=== PATIENT | female | born 1960 | race Caucasian/White ===

== ENCOUNTER → 2020-05-13 13:04 | Outpatient (BNVA) | payer OTHER, SELFPAY | PROVIDERS: PCP Internal Medicine; Visit Provider Family Medicine Adult Medicine | DX: M47.816 Spondylosis without myelopathy or radiculopathy, lumbar region (principal); F32.9 Major depressive disorder, single episode, unspecified | CPT/HCPCS: 99212 ==

== ENCOUNTER → 2020-08-12 13:39 | Outpatient (BNVA) | payer OTHER, SELFPAY | PROVIDERS: PCP Internal Medicine; Referring Provider Internal Medicine; Visit Provider Family Medicine Adult Medicine | DX: M47.816 Spondylosis without myelopathy or radiculopathy, lumbar region (principal); F32.9 Major depressive disorder, single episode, unspecified; Z79.899 Other long term (current) drug therapy | CPT/HCPCS: 99212 ==

== ENCOUNTER → 2020-10-12 08:06 | Outpatient (BNVA) | payer OTHER, SELFPAY | PROVIDERS: PCP Internal Medicine; Visit Provider Family Medicine Adult Medicine | DX: M47.816 Spondylosis without myelopathy or radiculopathy, lumbar region (principal); F32.9 Major depressive disorder, single episode, unspecified | CPT/HCPCS: 99212 ==

== ENCOUNTER → 2020-12-21 08:07 | Outpatient (BNVA) | payer OTHER, SELFPAY | PROVIDERS: PCP Internal Medicine; Visit Provider Family Medicine Adult Medicine | DX: M47.816 Spondylosis without myelopathy or radiculopathy, lumbar region (principal); F32.9 Major depressive disorder, single episode, unspecified; Z79.899 Other long term (current) drug therapy | CPT/HCPCS: 99212 ==

== ENCOUNTER 2021-01-11 06:33 | Outpatient (REF) | payer OTHER, SELFPAY ==
[2021-01-11 11:37] LABS: Hematocrit 43.2 % (37-47); Hemoglobin 14.2 g/dl (12.0-16.0); Mean Corpuscular HGB Conc 32.9 g/dl (31.0-35.0); Mean Corpuscular Hemoglobin 30.1 pg (27.0-33.0); Mean Corpuscular Volume 91.5 fL (80-98); Mean Platelet Volume 10.2 fL (9.4-12.3); Platelet Count 307 X10*3/uL (160-400); Red Blood Count 4.72 X10*6/uL (4.20-5.50); Red Cell Distribution Width 11.9 % (11.0-16.0); White Blood Count 6.2 X10*3/uL (4.8-10.8)
[2021-01-11 12:11] LABS: Alanine Aminotransferase 15 U/L (0-31); Albumin Level 4.4 g/dL (3.5-5.0); Alkaline Phosphatase 55 U/L (39-117); Anion Gap 11 (12-20); Aspartate Amino Transferase 17 U/L (5-31); Bilirubin Direct 0.3 mg/dL (0.0-0.5); Bilirubin Total 0.5 mg/dL (0.0-1.0); Blood Urea Nitrogen 15 mg/dL (9-16); Calcium 9.6 mg/dL (8.4-10.2); Carbon Dioxide 30 mmol/L (22-29); Chloride 105 mmol/L (96-108); Cholesterol 223 mg/dL; Estimated Glomerular Filt Rate 60; Glucose Random 94 mg/dL (60-115); HDL Cholesterol 86 mg/dL; LDL Cholesterol Calculated 128 mg/dl; Potassium 4.3 mmol/L (3.3-5.1); Sodium 142 mmol/L (135-145); Thyroid Stimulating Hormone 3.85 uIU/mL (0.32-4.0); Total Protein 6.8 g/dL (6.5-8.0); Triglycerides 47 mg/dL
[2021-01-15 14:51] LABS: Vitamin D 25-OH, D2 <4 ng/mL; Vitamin D 25-OH, D3 32 ng/mL; Vitamin D 25-OH, Total 32 ng/mL (30-100)
== END 2021-01-11 06:34 | disposition home or self-care (01) ==
LOC: HO.HMGCLDS 06:33
PROVIDERS: PCP Internal Medicine; Visit Provider Internal Medicine
DX: E78.00 Pure hypercholesterolemia, unspecified (principal)
CPT/HCPCS: 36415; 80048; 80061; 80076; 82306; 84443; 85027

== ENCOUNTER 2022-01-24 09:42 | Outpatient (REF) | payer OTHER, SELFPAY ==
[2022-01-24 11:27] LABS: Hemoglobin 14.4 g/dl (12.0-16.0); Mean Corpuscular HGB Conc 32.7 g/dl (31.0-35.0); Mean Corpuscular Hemoglobin 29.3 pg (27.0-33.0); Mean Corpuscular Volume 89.4 fL (80.0-98.0); Mean Platelet Volume 9.8 fL (9.4-12.3); Platelet Count 329 X10*3/uL (160-400); Red Blood Count 4.92 X10*6/uL (4.20-5.50); Red Cell Distribution Width 11.9 % (11.0-16.0); White Blood Count 7.3 X10*3/uL (4.8-10.8)
[2022-01-24 12:00] LABS: Appearance Urine Clear; Color Urine Dark Yellow; Glucose Urine UA Negative (Negative); Leukocyte Esterase Urine Small (1+) (Negative); Nitrite Urine Positive (Negative); PH 5.5 (5.0-8.0); Urine Blood Negative (Negative); Urine Ketones Trace mg/dL (Negative); Urine Protein Negative (Neg-Trace)
[2022-01-24 12:07] LABS: Bacteria Urine 4+ (None Seen); Hyaline Casts Urine 0-2 /LPF (0-2); RBC Urine 0-2 /HPF (0-2); UACC Culture Trigger YES
[2022-01-24 12:14] LABS: Alanine Aminotransferase 13 U/L (0-31); Albumin Level 4.4 g/dL (3.5-5.0); Alkaline Phosphatase 63 U/L (39-117); Anion Gap 15 (12-20); Aspartate Amino Transferase 16 U/L (5-31); Bilirubin Direct 0.2 mg/dL (0.0-0.5); Bilirubin Total 0.6 mg/dL (0.0-1.0); Blood Urea Nitrogen 14 mg/dL (9-16); Calcium 9.4 mg/dL (8.4-10.2); Carbon Dioxide 29 mmol/L (22-29); Chloride 98 mmol/L (96-108); Cholesterol 239 mg/dL; Estimated Glomerular Filt Rate > 60; Glucose Random 101 mg/dL (60-115); HDL Cholesterol 66 mg/dL; LDL Cholesterol Calculated 154 mg/dl; Sodium 138 mmol/L (135-145); Total Protein 7.2 g/dL (6.5-8.0); Triglycerides 99 mg/dL
[2022-01-24 12:16] LABS: Thyroid Stimulating Hormone 2.79 uIU/mL (0.32-4.0)
== END 2022-01-24 09:43 | disposition home or self-care (01) ==
LOC: HO.HMGCLDS 09:42
PROVIDERS: PCP Internal Medicine; Visit Provider Internal Medicine
DX: M47.9 Spondylosis, unspecified (principal); F33.9 Major depressive disorder, recurrent, unspecified; E78.00 Pure hypercholesterolemia, unspecified
CPT/HCPCS: 36415; 80048; 80061; 80076; 81001; 81003; 84443; 85027; 87086; 87088; 87186

== ENCOUNTER 2022-07-13 11:00 | Outpatient (RCR) | payer OTHER, SELFPAY | END 2022-07-20 13:14 | disposition home or self-care (01) | LOC: HO.PTCHIC 11:00 | PROVIDERS: PCP Internal Medicine; Visit Provider Podiatrist | DX: M76.812 Anterior tibial syndrome, left leg (principal) | CPT/HCPCS: 97035; 97110; 97112; 97140; 97161; 97164 ==

== ENCOUNTER 2023-02-12 08:02 | Outpatient (REF) | payer MEDICARE, OTHER, SELFPAY ==
[2023-02-12 12:10] LABS: Appearance Urine Clear; Color Urine Yellow; Glucose Urine UA Negative (Negative); Leukocyte Esterase Urine Negative (Negative); Nitrite Urine Negative (Negative); Urine Blood Negative (Negative); Urine Ketones Negative (Negative); Urine Protein Negative (Neg-Trace)
[2023-02-12 12:11] LABS: Alanine Aminotransferase 18 U/L (0-31); Alkaline Phosphatase 57 U/L (39-117); Anion Gap 10 (12-20); Aspartate Amino Transferase 21 U/L (5-31); Bilirubin Direct 0.2 mg/dL (0.0-0.5); Bilirubin Total 0.4 mg/dL (0.0-1.0); Blood Urea Nitrogen 19 mg/dL (9-16); Calcium 9.4 mg/dL (8.4-10.2); Carbon Dioxide 29 mmol/L (22-29); Chloride 107 mmol/L (96-108); Cholesterol 183 mg/dL (<200); Estimated Glomerular Filt Rate > 60; Glucose Random 87 mg/dL (60-115); HDL Cholesterol 81 mg/dL (>40); LDL Cholesterol Calculated 92 mg/dL (<100); Potassium 4.7 mmol/L (3.3-5.1); Sodium 141 mmol/L (135-145); Total Protein 6.3 g/dL (6.5-8.0); Triglycerides 54 mg/dL (<150)
[2023-02-12 12:28] LABS: Thyroid Stimulating Hormone 3.53 uIU/mL (0.32-4.0)
[2023-02-12 12:52] LABS: Erythrocyte Sedimentation Rate 2 MM/HR (0-20)
[2023-02-12 12:57] LABS: Hematocrit 39.2 % (37.0-47.0); Hemoglobin 12.6 g/dl (12.0-16.0); Mean Corpuscular HGB Conc 32.1 g/dl (31.0-35.0); Mean Corpuscular Hemoglobin 29.7 pg (27.0-33.0); Mean Corpuscular Volume 92.5 fL (80.0-98.0); Mean Platelet Volume 9.8 fL (9.4-12.3); Platelet Count 236 X10*3/uL (160-400); Red Blood Count 4.24 X10*6/uL (4.20-5.50); Red Cell Distribution Width 13.7 % (11.0-16.0); White Blood Count 7.6 X10*3/uL (4.8-10.8)
== END 2023-02-12 08:03 | disposition home or self-care (01) ==
LOC: HO.HMGCLDS 08:02
PROVIDERS: PCP Internal Medicine; Visit Provider Internal Medicine
DX: F33.9 Major depressive disorder, recurrent, unspecified (principal); E78.00 Pure hypercholesterolemia, unspecified
CPT/HCPCS: 36415; 80048; 80061; 80076; 81003; 84443; 85027; 85652

== ENCOUNTER 2023-02-15 15:16 | Outpatient (AMB) | payer MEDICARE, OTHER, SELFPAY ==
--- NOTE | 2023-02-15 15:19 | A.OFFVIS_ITS ---
Intake Vital Signs 02/15/23 15:24 Height 5 ft 1.5 in Weight 142 lb BMI 26.4 BP 130/80 Blood Pressure Location Lt brachial Position Sitting Pulse 77 Pulse Source Pulse Oximeter Pulse Oximetry (%) 100 Oxygen Delivery Method Room Air Intake Visit Reasons: AWV Intake Note: Patient is here for an Annual Wellness Visit. Lamp Stack Developer Required: No Legal Records Clerk: Legal Records Clerk offered & declined Accompanied by: Self / Same As Patient Allergies sulfa Allergy (Unknown, Uncoded 02/18/23 07:53) unknown HPI AWV HPI Details 62-year-old female presents to the [facility] for an annual wellness visit [facility] Medical History Osteoarthritis of spine Major depression, recurrent Hypercholesterolemia Depression Arthritis, lumbar spine Surgical History History of eyelid surgery History of colonoscopy Family History Father No problems noted. Mother No problems noted. Social History Housing: House Alcohol intake: current Alcohol intake frequency: a few times a month Patient Tobacco Use Status: Never used Tobacco e-Cigarette/Vaping Use: Never Used Second Hand Smoke Exposure: Yes service: No Current occupational status: employed Cognitive needs: No Hearing needs: No Vision needs: Yes (Contacts) Questionnaire Medicare Wellness Checkup What [age] your age?: 65-69 (62) What gender do you identify with?: female During the past 4 weeks, how much have you been bothered by emotional problems such as feeling anxious, depressed, irritable, sad or downhearted, and blue?: not at all During the past 4 weeks, has your physical & emotional health limited your social activities with family, friends, neighbors, or groups?: not at all During the past 4 weeks, how much bodily pain have you generally had?: no pain During the past 4 weeks, was someone available to help you if you needed & wanted help?: yes, as much as I wanted During the past 4 weeks, what was the hardest physical activity you could do for at least 2 minutes?: heavy Can you get to places out of walking distance without help? (For eg., can you travel alone on buses, taxis or drive your car?): Yes Can you go shopping for groceries or clothes without someone's help?: Yes Can you prepare your own meals?: Yes Can you do your housework without help?: Yes Because of any health problems, do you need the help of another person with your personal care needs such as eating, bathing, dressing or getting around the house?: No Can you handle your own money without help?: Yes During the past 4 weeks, how would you rate your health in general?: very good During the past 4 weeks how have things been going for you?: pretty well Are you having difficulties driving your car?: no Do you always fasten your seat belt when you are in a car?: yes, usually During past 4 weeks, have you been bothered by the following: never: Falling or dizzy when standing up, Sexual problems?, Trouble eating well?, Teeth or denture problems?, Problems using the telephone? and Tiredness or fatigue? Have you fallen 2 or more times in the past year?: No Are you afraid of falling?: No Are you a smoker?: no During the past 4 weeks, how many drinks of wine, beer, or other alcoholic beverages did you have?: 6-9 drinks per week Do you exercise for about 20 minutes 3 or more times a week?: yes, all the time Have you been given information to help with the following?: yes: Keeping track of your medications? and no: Hazards in your house that might hurt you? How often do you have trouble taking medicines the way you have been told to take them?: I always take medicine as prescribed How confident are you that you can control & manage most of your health problems?: very confident What is your race?: White Mini Mental State Exam (MMSE) Orientation What is the (year) (season) (date) (day) (month)?: year, season, date and day Where are we (state) (county) (town or city) (hospital) (floor)?: state, county and town or city Registration Name of 3 unrelated objects clearly and slowly, then ask patient to repeat all 3 of them. (1st repeat determines score. Make sure they can repeat all three): object 1, object 2 and object 3 Attention & Calculation (CHOOSE ONE) Ask pt to begin with 100 & count backward by 7. Stop after 5 repeats. If pt cannot ask them to spell the word WORLD backward.: 93, 86 and 79 Score Score: 13 Activity of Daily Living Bathing - sponge bath, tub bath or shower: receives no assistance (gets in/out by self, if usual bathing means Dressing - getting clothes from closets & drawers, including inner/outer garments & fasteners.: gets clothes & gets completely dressed without help Toileting - going to the 'toilet room' for urine/bowel elimination & cleaning self/arranging clothes: goes to toilet room, cleans self, arranges clothes without help Transfer: moves in & out of bed and chair without help (may use support object) Continence: controls urination/bowel movements completely by self Feeding: feeds self without help Total Score: 0 Information obtained from: patient Using telephone: independent Traveling: independent Shopping: independent Preparing meals: independent Housework: independent Taking medicine: independent Managing money: independent PHQ-9 Over the last 2 weeks, how often have you been bothered by any of the following problems? 1. Little interest or pleasure in doing things: not at all 2. Feeling down, depressed, or hopeless: not at all 3. Trouble falling or staying asleep, or sleeping too much: not at all 4. Feeling tired or having little energy: not at all 5. Poor appetite or overeating: not at all 6. Feeling bad about yourself - or that you are a failure or have let yourself or your family down: not at all 7. Trouble concentrating on things, such as reading the newspaper or watching television: not at all 8. Moving or speaking so slowly that other people could have noticed. Or the opposite - being so fidgety or restless that you have been moving around a lot more than usual: not at all 9. Thoughts that you would be better off or of hurting yourself in some way: not at all Total score: 0 Depression Screening Interpretation: Negative Source: Developed by Drs. Reed Suresh, Kym Anaya, Christopher Drake and colleagues, with an educational alexis from [employer]. Thrive Questionnaire Date Thrive assessed: 02/15/23 I am a: Patient What is your living situation today?: I have a steady place to live Within the past 12 months, did the food you bought not last and you didn't have the money to get more?: Never true Within the past 12 months, did you worry whether your food would run out before you got money to buy more?: Never true Do you have trouble paying for medicines?: No Do you have trouble getting transportation to medical appointments?: No Do you have trouble paying your heating and electricity bill?: No Do you have trouble taking care of your child, family member or friend?: No Do you have trouble with day-to-day activities such as bathing, preparing meals, shopping, managing finances, etc.?: No Are you currently unemployed and looking for a job?: No Are you interested in more education?: No Currently or been in a relationship where the following occur: no concerns reported ANSHU-7 AMB Questionnaire ANSHU-7 Date ANSHU - 7 assessed: 02/15/23 Feeling nervous, anxious, or on edge: 0 = Not at all Not being able to stop or control worryin = Not at all Worrying too much about different things: 0 = Not at all Trouble relaxin = Not at all Being so restless that it is hard to sit still: 0 = Not at all Becoming easily annoyed or irritable: 0 = Not at all Feeling afraid as if something awful might happen: 0 = Not at all Total ANSHU-7 score (0-4 normal; 5-9 mild; 10-14 moderate; 15-21 severe): 0 Source: Developed by Drs. Reed Suresh, Kym Anaya, Christopher Drake and colleagues, with an educational alexis from [employer]. AUDIT C Alcohol Use Questionnaire (AUDIT-C) 1. How often do you have a drink containing alcohol?: Monthly or less 2. How many drinks containing alcohol do you have on a typical day when you are drinking?: 1 or 2 Total Score: 1 Physical Exam Vital Signs: Last Vital Signs Pulse 77 02/15/23 15:24 BP 130/80 02/15/23 15:24 Pulse Ox 100 02/15/23 15:24 Oxygen Delivery Method Room Air 02/15/23 15:24 BMI result Body Mass Index 26.4 Balance: Normal Romberg: Neg Tandem Walk: Able to Walk and Turn: Able to Rise from sit to stand: Able to Hearing Whisper test: Pass Assessment & Plan Assessment & Plan (1) Encounter for annual physical exam: Code(s): Z00.00 - Encounter for general adult medical examination without abnormal findings (2) Osteoarthritis of spine: Code(s): M47.9 - Spondylosis, unspecified Qualifiers: Spinal region: lumbar Spinal osteoarthritis complication: without myelopathy or radiculopathy Qualified Code(s): M47.816 - Spondylosis without myelopathy or radiculopathy, lumbar region Plan: Condition is stable (3) Major depression, recurrent: Code(s): F33.9 - Major depressive disorder, recurrent, unspecified Qualifiers: Active/Remission status: in full remission Qualified Code(s): F33.42 - Major depressive disorder, recurrent, in full remission Plan: Continue Wellbutrin medication at same dosage (4) Hypercholesterolemia: Code(s): E78.00 - Pure hypercholesterolemia, unspecified Plan: Blood work shows significant improvement and total cholesterol. Patient was advised to continue exercising. (5) Arthritis, lumbar spine: Code(s): M47.816 - Spondylosis without myelopathy or radiculopathy, lumbar region Medications: Refilled bupropion HCl 300 mg PO QAM 90 tabs 2RF F32.9 - Major depressive disorder, single episode, unspecified Quality Reporting (2019) Depression/Bipolar (159/160/161/177) PHQ-9: Total score: 0 Coding Level of Care Code Medicare First (G0438) Diagnoses Encounter for annual physical exam Z00.00 Spondylosis of lumbar region without myelopathy or radiculopathy M47.816 Spinal region: lumbar Spinal osteoarthritis complication: without myelopathy or radiculopathy Recurrent major depressive disorder, in full remission F33.42 Active/Remission status: in full remission Hypercholesterolemia E78.00 Arthritis, lumbar spine M47.816 CPT Codes Advance Care Planning - Time spent: 1-15 minutes, not on file ([id number]) Advance Care Planning Advance Care Planning discussion: Exists, not on file Date of discussion: 02/15/23 Who was present: Patient Forms completed: Health Care Proxy and MOLST Time spent: 1-15 minutes, not on file
[2023-02-15 15:24] VITALS: BP 130/80; PULSE 77; O2SAT 100; BMI 26.4
== END 2023-02-15 16:00 | disposition home or self-care (01) ==
PROVIDERS: Visit Provider Internal Medicine
DX: Z00.00 Encounter for general adult medical examination without abnormal findings (principal); M47.816 Spondylosis without myelopathy or radiculopathy, lumbar region; F33.42 Major depressive disorder, recurrent, in full remission; E78.00 Pure hypercholesterolemia, unspecified
CPT/HCPCS: 1124F; 99214; G0438

== ENCOUNTER 2023-07-19 12:09 | Outpatient (AMB) | payer MEDICARE, OTHER, SELFPAY ==
[2023-07-19 12:14] VITALS: BP 136/80; PULSE 75; O2SAT 98; BMI 26.4
--- NOTE | 2023-07-19 12:14 | MHC.PC.OV ---
Vital Signs 07/19/23 12:14 Height 5 ft 1.5 in Weight 142 lb BMI 26.4 BP 136/80 Blood Pressure Location Lt brachial Position Sitting Pulse 75 Pulse Source Pulse Oximeter Pulse Oximetry (%) 98 Oxygen Delivery Method Room Air Intake Visit Reasons: Urgent Care F/U-Torn Calf Muscle on Right Leg Senior Infrastructure Architect Required: No Accompanied by: Self / Same As Patient Allergies sulfa Allergy (Unknown, Uncoded 07/19/23 12:36) unknown Medication List - Last Reconciled 07/19/23 by Shay Talamantes MD bupropion HCl 300 mg PO QAM fluticasone propionate 50 mcg/actuation 1 spray intranasal BID ibuprofen 800 mg PO Q8H PRN 90 days tizanidine 4 mg PO Q8H Tobacco use date assessed: 07/19/23 Fall risk assessment: 1 Fall in past year Last assessed Fall Risk: 07/19/23 Dental Screening Dental Screen Date: 07/19/23 Did you have a dental visit in the last 12 months?: Yes Did you have a dental problem in the last 6 months where you did not have access to dental care?: No Was dental information given to patient?: Patient has dentist HPI Urgent Care F/U-Torn Calf Muscle on Right Leg HPI Details 63-year-old female presents to the office to discuss her medical condition. In April patient started having pain behind her right knee. Soon she was having difficulty squatting. At 1 point, while she was jogging she experienced sharp shooting pain in the right knee. Went to the urgent care at the local orthopedic office and was diagnosed with meniscal tear. She wore a boot for 6 weeks with no relief. Finally when she went back an MRI was done which showed a Pickett cyst with meniscal tear. She saw an orthopedic surgeon who injected a steroid. Now her symptoms of pain have resolved. Patient had questions on returning back to physical exercise. She would also like to get a refill on Zovirax, bupropion and ibuprofen. [facility] Medical History (Updated 07/19/23 @ 12:41 by Shay Talamantes MD) Synovial cyst of popliteal space [Pickett], right knee Osteoarthritis of spine Major depression, recurrent Hypercholesterolemia Depression Arthritis, lumbar spine Surgical History History of eyelid surgery History of colonoscopy Family History Father No problems noted. Mother No problems noted. Social History Housing: House Alcohol intake: current Alcohol intake frequency: a few times a month Patient Tobacco Use Status: Never used Tobacco e-Cigarette/Vaping Use: Never Used Second Hand Smoke Exposure: Yes service: No Current occupational status: employed Current occupational exposures/hazards: No Cognitive needs: No Hearing needs: No Vision needs: Yes (Contacts) Questionnaire PHQ-9 Over the last 2 weeks, how often have you been bothered by any of the following problems? 1. Little interest or pleasure in doing things: not at all 2. Feeling down, depressed, or hopeless: not at all 3. Trouble falling or staying asleep, or sleeping too much: not at all 4. Feeling tired or having little energy: not at all 5. Poor appetite or overeating: not at all 6. Feeling bad about yourself - or that you are a failure or have let yourself or your family down: not at all 7. Trouble concentrating on things, such as reading the newspaper or watching television: not at all 8. Moving or speaking so slowly that other people could have noticed. Or the opposite - being so fidgety or restless that you have been moving around a lot more than usual: not at all 9. Thoughts that you would be better off or of hurting yourself in some way: not at all Total score: 0 Depression Screening Interpretation: Negative Depression Screening Done: Yes Source: Developed by Drs. Reed Suresh, Kym Anaya, Christopher Drake and colleagues, with an educational alexis from [employer] Thrive Questionnaire Date Thrive assessed: 07/19/23 I am a: Patient What is your living situation today?: I have a steady place to live Within the past 12 months, did the food you bought not last and you didn't have the money to get more?: Never true Within the past 12 months, did you worry whether your food would run out before you got money to buy more?: Never true Do you have trouble paying for medicines?: No Do you have trouble getting transportation to medical appointments?: No Do you have trouble paying your heating and electricity bill?: No Do you have trouble taking care of your child, family member or friend?: No Do you have trouble with day-to-day activities such as bathing, preparing meals, shopping, managing finances, etc.?: No Are you currently unemployed and looking for a job?: No Are you interested in more education?: No Please select the resources that you would like help with: None Currently or been in a relationship where the following occur: no concerns reported THRIVE Score: 0 AUDIT C Alcohol Use Questionnaire (AUDIT-C) 1. How often do you have a drink containing alcohol?: Monthly or less 2. How many drinks containing alcohol do you have on a typical day when you are drinking?: 1 or 2 3. How often do you have six or more drinks on one occasion?: Never Total Score: 1 ANSHU-7 AMB Questionnaire ANSHU-7 Date ANSHU - 7 assessed: 07/19/23 Feeling nervous, anxious, or on edge: 0 = Not at all Not being able to stop or control worryin = Not at all Worrying too much about different things: 0 = Not at all Trouble relaxin = Not at all Being so restless that it is hard to sit still: 0 = Not at all Becoming easily annoyed or irritable: 0 = Not at all Feeling afraid as if something awful might happen: 0 = Not at all Total ANSHU-7 score (0-4 normal; 5-9 mild; 10-14 moderate; 15-21 severe): 0 Source: Developed by Drs. Reed Suresh, Kym Anaya, Christopher Drake and colleagues, with an educational alexis from [employer]. Physical exam (Primary Care) Vital Signs: Last Vital Signs Pulse 75 07/19/23 12:14 BP 136/80 07/19/23 12:14 Pulse Ox 98 07/19/23 12:14 Oxygen Delivery Method Room Air 07/19/23 12:14 Care Plan Goal for BP management: Blood pressure is in range. BMI result Body Mass Index 26.4 Tobacco/Smoking Status: Tobacco use Status Tobacco use date assessed 07/19/23 07/19/23 12:19 Patient Tobacco Use Status Never used Tobacco 07/19/23 12:19 e-Cigarette/Vaping Use Never Used 07/19/23 12:19 PHQ-9: PHQ-9 Score PHQ-9: Total score 0 07/19/23 12:19 Depression Screening Interpretation: Negative Thrive Assessment: Date of Thrive Assessment Date Thrive assessed 07/19/23 07/19/23 12:22 Currently or been in a relationship where the following occur: no concerns reported Extrem Other: Right knee: No joint line tenderness. Popliteal fossa is normal. Full flexion and extension. Assessment and Plan Assessment & Plan (1) Major depression, recurrent: Code(s): F33.9 - Major depressive disorder, recurrent, unspecified Qualifiers: Active/Remission status: in full remission Qualified Code(s): F33.42 - Major depressive disorder, recurrent, in full remission Plan: Bupropion has been refilled. Zovirax has been refilled. Condition is stable and continue current medications. (2) Synovial cyst of popliteal space [Pickett], right knee: Code(s): M71.21 - Synovial cyst of popliteal space [Pickett], right knee Plan: Patient was advised that she could go back to exercising wearing support for the right knee. Coding Level of Care Code Est Pt Level 4 (31965) Diagnoses Recurrent major depressive disorder, in full remission F33.42 Active/Remission status: in full remission Synovial cyst of popliteal space [Pickett], right knee M71.21
== END 2023-07-19 12:42 | disposition home or self-care (01) ==
PROVIDERS: PCP Internal Medicine; Visit Provider Internal Medicine
DX: F33.42 Major depressive disorder, recurrent, in full remission (principal); M71.21 Synovial cyst of popliteal space [Baker], right knee
CPT/HCPCS: 99214

== ENCOUNTER 2024-02-13 07:53 | Outpatient (REF) | payer MEDICARE, OTHER, SELFPAY ==
[2024-02-13 10:01] LABS: Hematocrit 41.9 % (37.0-47.0); Hemoglobin 13.9 g/dl (12.0-16.0); Mean Corpuscular HGB Conc 33.2 g/dl (31.0-35.0); Mean Corpuscular Hemoglobin 30.5 pg (27.0-33.0); Mean Corpuscular Volume 91.9 fL (80.0-98.0); Mean Platelet Volume 9.7 fL (9.4-12.3); Platelet Count 251 X10*3/uL (160-400); Red Blood Count 4.56 X10*6/uL (4.20-5.50); Red Cell Distribution Width 12.7 % (11.0-16.0); White Blood Count 6.8 X10*3/uL (4.8-10.8)
[2024-02-13 10:25] LABS: Alanine Aminotransferase 15 U/L (0-31); Albumin Level 4.2 g/dL (3.5-5.0); Alkaline Phosphatase 58 U/L (39-117); Anion Gap 13 (12-20); Aspartate Amino Transferase 17 U/L (5-31); Bilirubin Direct 0.3 mg/dL (0.0-0.5); Bilirubin Total 0.9 mg/dL (0.0-1.0); Blood Urea Nitrogen 18 mg/dL (9-16); Calcium 9.5 mg/dL (8.4-10.2); Carbon Dioxide 30 mmol/L (22-29); Chloride 102 mmol/L (96-108); Cholesterol 215 mg/dL (<200); Estimated Glomerular Filt Rate > 60; Glucose Random 97 mg/dL (60-115); HDL Cholesterol 82 mg/dL (>40); LDL Cholesterol Calculated 123 mg/dL (<100); Potassium 3.7 mmol/L (3.3-5.1); Sodium 141 mmol/L (135-145); Total Protein 6.6 g/dL (6.5-8.0); Triglycerides 51 mg/dL (<150)
== END 2024-02-13 07:54 | disposition home or self-care (01) ==
LOC: HO.HMGCLDS 07:53
PROVIDERS: PCP Internal Medicine; Visit Provider Internal Medicine
DX: E78.00 Pure hypercholesterolemia, unspecified (principal)
CPT/HCPCS: 36415; 80048; 80061; 80076; 84443; 85027

== ENCOUNTER 2024-02-21 14:26 | Outpatient (AMB) | payer MEDICARE, OTHER, SELFPAY ==
--- NOTE | 2024-02-21 14:29 | AM.OFFVISMDC ---
Intake Vital Signs 02/21/24 14:32 Height 5 ft 1.5 in Weight 136 lb 6 oz BMI 25.3 BP 120/70 Blood Pressure Location Lt brachial Position Sitting Pulse 90 Pulse Source Pulse Oximeter Pulse Oximetry (%) 96 Oxygen Delivery Method Room Air Intake Visit Reasons: [facility] G0439 Intake Note: Patient is here for an Annual Wellness Visit. It Solutions Architect Required: No Transportation Planning Engineer: Transportation Planning Engineer offered & declined Accompanied by: Self / Same As Patient Allergies sulfa Allergy (Unknown, Uncoded 02/22/24 10:29) unknown Medication List - Last Reconciled 02/22/24 by Shay Talamantes MD acyclovir 5% (Zovirax) 1 appl topical 6XD 7 days bupropion HCl XL 300 mg PO QAM fluticasone propionate 50 mcg/actuation 1 spray intranasal BID ibuprofen 800 mg PO DAILY PRN 90 days tizanidine 4 mg PO Q8H HPI SWV G0439 HPI Details 63-year-old female presents to the office requesting a subsequent wellness visit. [facility] Medical History Synovial cyst of popliteal space [Pickett], right knee Osteoarthritis of spine Major depression, recurrent Hypercholesterolemia Depression Arthritis, lumbar spine Surgical History History of eyelid surgery History of colonoscopy (~02/24/19) Family History Father No problems noted. Mother No problems noted. Social History Housing: House Alcohol intake: current Alcohol intake frequency: a few times a month Patient Tobacco Use Status: Never used Tobacco e-Cigarette/Vaping Use: Never Used Second Hand Smoke Exposure: Yes service: No Current occupational status: employed Current occupational exposures/hazards: No Cognitive needs: No Hearing needs: No Vision needs: Yes (Contacts) Questionnaire Medicare Wellness Checkup What [age] 65-67 What gender do you identify with?: female During the past 4 weeks, how much have you been bothered by emotional problems such as feeling anxious, depressed, irritable, sad or downhearted, and blue?: not at all During the past 4 weeks, has your physical & emotional health limited your social activities with family, friends, neighbors, or groups?: not at all During the past 4 weeks, how much bodily pain have you generally had?: no pain During the past 4 weeks, was someone available to help you if you needed & wanted help?: yes, as much as I wanted During the past 4 weeks, what was the hardest physical activity you could do for at least 2 minutes?: very heavy Can you get to places out of walking distance without help? (For eg., can you travel alone on buses, taxis or drive your car?): Yes Can you go shopping for groceries or clothes without someone's help?: Yes Can you prepare your own meals?: Yes Can you do your housework without help?: Yes Because of any health problems, do you need the help of another person with your personal care needs such as eating, bathing, dressing or getting around the house?: No Can you handle your own money without help?: Yes During the past 4 weeks, how would you rate your health in general?: very good During the past 4 weeks how have things been going for you?: very well; could hardly better Are you having difficulties driving your car?: no Do you always fasten your seat belt when you are in a car?: yes, usually During past 4 weeks, have you been bothered by the following: never: Falling or dizzy when standing up, Sexual problems?, Trouble eating well?, Teeth or denture problems?, Problems using the telephone? and Tiredness or fatigue? Have you fallen 2 or more times in the past year?: No Are you afraid of falling?: Yes Are you a smoker?: no During the past 4 weeks, how many drinks of wine, beer, or other alcoholic beverages did you have?: 1 drink or less per week Do you exercise for about 20 minutes 3 or more times a week?: yes, all the time Have you been given information to help with the following?: yes: Keeping track of your medications? and no: Hazards in your house that might hurt you? How often do you have trouble taking medicines the way you have been told to take them?: I always take medicine as prescribed How confident are you that you can control & manage most of your health problems?: very confident What is your race?: White Mini Mental State Exam (MMSE) Orientation What is the (year) (season) (date) (day) (month)?: year, season, date and day Where are we (state) (county) (town or city) (hospital) (floor)?: state, county and town or city Attention & Calculation (CHOOSE ONE) Ask pt to begin with 100 & count backward by 7. Stop after 5 repeats. If pt cannot ask them to spell the word WORLD backward.: 93, 86, 79, 72 and 65 Score Score: 12 Activity of Daily Living Bathing - sponge bath, tub bath or shower: receives no assistance (gets in/out by self, if usual bathing means Dressing - getting clothes from closets & drawers, including inner/outer garments & fasteners.: gets clothes & gets completely dressed without help Toileting - going to the 'toilet room' for urine/bowel elimination & cleaning self/arranging clothes: goes to toilet room, cleans self, arranges clothes without help Transfer: moves in & out of bed and chair without help (may use support object) Continence: controls urination/bowel movements completely by self Feeding: feeds self without help Total Score: 0 Information obtained from: patient Using telephone: independent Traveling: independent Shopping: independent Preparing meals: independent Housework: independent Taking medicine: independent Managing money: independent PHQ-9 Over the last 2 weeks, how often have you been bothered by any of the following problems? 1. Little interest or pleasure in doing things: not at all 2. Feeling down, depressed, or hopeless: not at all 3. Trouble falling or staying asleep, or sleeping too much: not at all 4. Feeling tired or having little energy: not at all 5. Poor appetite or overeating: not at all 6. Feeling bad about yourself - or that you are a failure or have let yourself or your family down: not at all 7. Trouble concentrating on things, such as reading the newspaper or watching television: not at all 8. Moving or speaking so slowly that other people could have noticed. Or the opposite - being so fidgety or restless that you have been moving around a lot more than usual: not at all 9. Thoughts that you would be better off or of hurting yourself in some way: not at all Total score: 0 Depression Screening Interpretation: Negative Depression Screening Done: Yes Source: Developed by Drs. Reed Suresh, Kym Anaya, Christopher Drake and colleagues, with an educational alexis from [employer]. Thrive Questionnaire Date Thrive assessed: 07/19/23 What is your living situation today?: I have a steady place to live Are you currently unemployed and looking for a job?: No THRIVE Score: 0 ANSHU-7 AMB Questionnaire ANSHU-7 Date ANSHU - 7 assessed: 07/19/23 Source: Developed by Drs. Reed Suresh, Kym Anaya, Christopher Drake and colleagues, with an educational alexis from [employer]. AUDIT C Alcohol Use Questionnaire (AUDIT-C) 2. How many drinks containing alcohol do you have on a typical day when you are drinking?: 1 or 2 3. How often do you have six or more drinks on one occasion?: Never Total Score: 0 Physical Exam Vital Signs: Last Vital Signs Pulse 90 02/21/24 14:32 BP 120/70 02/21/24 14:32 Pulse Ox 96 02/21/24 14:32 Oxygen Delivery Method Room Air 02/21/24 14:32 BMI result Body Mass Index 25.3 Balance: Negative Romberg: Negative Tandem Walk: Able to Walk and Turn: Able to Rise from sit to stand: Able to Hearing Whisper test: Pass Scheduled for screening and nooksack of care provided to patient. Assessment & Plan Assessment & Plan (1) Encounter for annual physical exam: Code(s): Z00.00 - Encounter for general adult medical examination without abnormal findings Plan: Up-to-date on all screening procedures. (2) Osteoarthritis of spine: Code(s): M47.9 - Spondylosis, unspecified Qualifiers: Spinal region: lumbar Spinal osteoarthritis complication: without myelopathy or radiculopathy Qualified Code(s): M47.816 - Spondylosis without myelopathy or radiculopathy, lumbar region Plan: Condition is stable. (3) Major depression, recurrent: Code(s): F33.9 - Major depressive disorder, recurrent, unspecified Qualifiers: Active/Remission status: in full remission Qualified Code(s): F33.42 - Major depressive disorder, recurrent, in full remission Plan: Condition is stable. (4) Hypercholesterolemia: Code(s): E78.00 - Pure hypercholesterolemia, unspecified Plan: Condition is stable. Medications: Refilled tizanidine 4 mg PO Q8H 90 tabs 0RF acyclovir 5% (Zovirax) 1 appl topical 6XD 5 grams 0RF 7 days Quality Reporting (2019) Depression/Bipolar (159/160/161/177) PHQ-9: Total score: 0 Coding Level of Care Code Medicare Subsequent (G0439) Diagnoses Encounter for annual physical exam Z00.00 Spondylosis of lumbar region without myelopathy or radiculopathy M47.816 Spinal region: lumbar Spinal osteoarthritis complication: without myelopathy or radiculopathy Recurrent major depressive disorder, in full remission F33.42 Active/Remission status: in full remission Hypercholesterolemia E78.00
[2024-02-21 14:32] VITALS: BP 120/70; PULSE 90; O2SAT 96; BMI 25.3
== END 2024-02-21 15:24 | disposition home or self-care (01) ==
PROVIDERS: PCP Internal Medicine; Visit Provider Internal Medicine
DX: Z00.00 Encounter for general adult medical examination without abnormal findings (principal); M47.816 Spondylosis without myelopathy or radiculopathy, lumbar region; F33.42 Major depressive disorder, recurrent, in full remission; E78.00 Pure hypercholesterolemia, unspecified

== ENCOUNTER → 2024-02-21 14:26 | Outpatient (BNVA) | payer MEDICARE, OTHER, SELFPAY | PROVIDERS: PCP Internal Medicine; Visit Provider Internal Medicine ==

== ENCOUNTER 2024-04-09 10:38 | Outpatient (AMB) | payer MEDICARE, OTHER, SELFPAY ==
[2024-04-09 10:52] VITALS: BP 138/90; PULSE 100; O2SAT 97; BMI 26.0
--- NOTE | 2024-04-09 10:52 | MHC.OFFWIV ---
Intake Vital Signs 04/09/24 10:52 Height 5 ft 1.5 in Weight 140 lb 2 oz BMI 26.0 BP 138/90 H Blood Pressure Location Lt brachial Position Sitting Pulse 100 Pulse Source Pulse Oximeter Pulse Oximetry (%) 97 Oxygen Delivery Method Room Air Intake Visit Reasons: EP ? UTI [phone] Patient Tobacco Use Status: Never used Tobacco Allergies sulfa Allergy (Unknown, Uncoded 04/09/24 11:10) unknown Do you need a note to return to daycare/school/sports/work: Yes HPI EP ? UTI [phone] HPI Details This note is constructed using voice recognition software. While every effort has been made to ensure accuracy, records assistant errors may have been included. The patient is a 64 year old female who presents to the clinic today with concern for UTI. She notes that for the past week she has been having urinary frequency, urgency, and slight burning with urination. She has increased her hydration to help improve the symptoms. She denies fever, chills, body aches, backaches, change in color of urine, though she has had decreased volume. She is sexually active, no new partners, and no vaginal discharge. [facility] Medical History Synovial cyst of popliteal space [Pickett], right knee Osteoarthritis of spine Major depression, recurrent Hypercholesterolemia Depression Arthritis, lumbar spine Surgical History History of eyelid surgery History of colonoscopy (~02/24/19) Family History Father No problems noted. Mother No problems noted. Social History Housing: House Alcohol intake: current Alcohol intake frequency: a few times a month Patient Tobacco Use Status: Never used Tobacco e-Cigarette/Vaping Use: Never Used Second Hand Smoke Exposure: Yes service: No Current occupational status: employed Current occupational exposures/hazards: No Cognitive needs: No Hearing needs: No Vision needs: Yes (Contacts) Review of Systems Const All systems reviewed & are unremarkable except as noted in HPI and below Physical Exam Vital Signs: Last Vital Signs Pulse 100 04/09/24 10:52 BP 138/90 H 04/09/24 10:52 Pulse Ox 97 04/09/24 10:52 Oxygen Delivery Method Room Air 04/09/24 10:52 BMI result Body Mass Index 26.0 Const General: cooperative, healthy appearing, comfortable, no acute distress and alert Orientation/consciousness: patient oriented x3 Limitations: no limitations Resp Effort & Inspection: normal respiratory effort and able to speak in complete sentences Other: Deferred General: Yes no CVA tenderness Back/Spine/Pelvis Back: no CVA tenderness Skin General skin exam: no rashes or lesions noted, elasticity normal and turgor normal Neuro General: patient oriented x3 Psych Appearance: grossly normal Mental Status: mental status grossly normal Speech and movement: Normal speech and movement present Affect: normal affect Assessment & Plan Assessment & Plan (1) Dysuria: Code(s): R30.0 - Dysuria Plan: We will treat based on symptoms, though in office urine appears likely negative for UTI. Discussed likelihood that she may not have an infection, in which case the antibiotic will not help any symptoms. I advised re-evaluation if symptoms persist or worsen. Advised ongoing increased hydration to help flush the system. Plan See above for full details and plan. Medications: New nitrofurantoin monohyd/m-cryst 100 mg must administer with a meal/food 100 mg PO BID 5 days 10 caps 0RF Coding Level of Care Code Est Pt Level 3 (34992) Diagnoses Dysuria R30.0
== END 2024-04-09 11:23 | disposition home or self-care (01) ==
PROVIDERS: PCP Internal Medicine; Visit Provider Registered Nurse
DX: R30.0 Dysuria (principal)

== ENCOUNTER → 2024-04-09 10:38 | Outpatient (BNVA) | payer MEDICARE, OTHER, SELFPAY | PROVIDERS: PCP Internal Medicine; Visit Provider Registered Nurse | DX: R30.0 Dysuria (principal) | CPT/HCPCS: 99212 ==

== ENCOUNTER 2024-08-06 07:29 | Day surgery (SDC) | payer MEDICARE, OTHER, SELFPAY ==
[2024-08-04 13:11] VITALS: BMI 24.7
--- NOTE | 2024-08-05 12:41 | P.CONAN_ITS ---
Documented by User: Nelly Lucia NP 08/05/24 12:42 HPI - Anesthesia Eval Consult details Narrative: 64yo F for Upper Endoscopy with Balloon Dilitation, Colonoscopy PMFSH Active Problems Active Problems: All Active Problems Encounter for annual physical exam (Acute) Left foot pain (Acute) Synovial cyst of popliteal space [Pickett], right knee (Acute) Osteoarthritis of spine (Acute) Major depression, recurrent (Acute) Hypercholesterolemia (Acute) Arthritis, lumbar spine (Acute) Past Medical History Medical History Anal condyloma Depression Back pain Synovial cyst of popliteal space [Ipckett], right knee Osteoarthritis of spine Major depression, recurrent Hypercholesterolemia Depression Arthritis, lumbar spine Family History Family History Father No problems noted. Mother No problems noted. Surgical History Surgical History History of eyelid surgery History of colonoscopy (~02/24/19) Social History Social History Housing: House Are you a primary progressive care unit registered nurse to a significant other at home: No Do you presently have visiting nurse or other home services: No Alcohol intake: current Alcohol intake frequency: holidays/special occasions only Patient Tobacco Use Status: Never used Tobacco e-Cigarette/Vaping Use: Never Used Second Hand Smoke Exposure: Yes Use of substances other than those prescribed or required for medical reasons: No Have you been hit, kicked, punched, or otherwise hurt by someone within the past year? If so, by whom?: No Are you DNR?: No Advance Directives: No Advance Directives Information Provided: Yes Recently lost weight without trying: No Nutrition Risks: No Nutritional Risk service: No Current occupational status: employed Current occupational exposures/hazards: No Cognitive needs: No Hearing needs: No Vision needs: Yes (Contacts) Meds Allergies Allergy/AdvReac Type Severity Reaction Status Date / Time latex Allergy Unknown Verified 08/06/24 08:09 sulfa Allergy Unknown unknown Uncoded 04/09/24 11:10 Home Medications ?Medication ?Instructions ?Recorded ?Confirmed ?Last Taken ?Type ferrous sulfate 325 mg (65 mg 325 mg PO NEEDED 08/04/24 08/06/24 07/23/24 History iron) tablet (iron) multivitamin 1 tab PO DAILY 08/04/24 08/06/24 Unknown History bupropion HCl 300 mg 24 hr tablet, mg PO DAILY 08/06/24 08/06/24 Unknown History extended release cetirizine 10 mg tablet (Zyrtec) mg 08/06/24 08/06/24 Unknown History Exam Height,Weight and Vital Signs: Height 5 ft 2 in Weight 61.235 kg Assessment and Plan Assessment Anesthesia Assessment: Chart Reviewed Documented by User: Maurice Corona MD 08/06/24 08:45 PMFSH Past Medical History Medical History Anal condyloma Depression Back pain Synovial cyst of popliteal space [Pickett], right knee Osteoarthritis of spine Major depression, recurrent Hypercholesterolemia Depression Arthritis, lumbar spine Family History Family History Father No problems noted. Mother No problems noted. Family history of problems with anesthesia: No Surgical History Surgical History History of eyelid surgery History of colonoscopy (~02/24/19) History of Problems with Anesthesia: No Social History Social History Housing: House Are you a primary progressive care unit registered nurse to a significant other at home: No Do you presently have visiting nurse or other home services: No Alcohol intake: current Alcohol intake frequency: holidays/special occasions only Patient Tobacco Use Status: Never used Tobacco e-Cigarette/Vaping Use: Never Used Second Hand Smoke Exposure: Yes Use of substances other than those prescribed or required for medical reasons: No Have you been hit, kicked, punched, or otherwise hurt by someone within the past year? If so, by whom?: No Are you DNR?: No Advance Directives: No Advance Directives Information Provided: Yes Recently lost weight without trying: No Nutrition Risks: No Nutritional Risk service: No Current occupational status: employed Current occupational exposures/hazards: No Cognitive needs: No Hearing needs: No Vision needs: Yes (Contacts) Meds Allergies Allergy/AdvReac Type Severity Reaction Status Date / Time latex Allergy Unknown Verified 08/06/24 08:09 sulfa Allergy Unknown unknown Uncoded 04/09/24 11:10 Home Medications ?Medication ?Instructions ?Recorded ?Confirmed ?Last Taken ?Type ferrous sulfate 325 mg (65 mg 325 mg PO NEEDED 08/04/24 08/06/24 07/23/24 History iron) tablet (iron) multivitamin 1 tab PO DAILY 08/04/24 08/06/24 Unknown History bupropion HCl 300 mg 24 hr tablet, mg PO DAILY 08/06/24 08/06/24 Unknown History extended release cetirizine 10 mg tablet (Zyrtec) mg 08/06/24 08/06/24 Unknown History Exam Airway Mallampati Class: I TM Dist: >3cm Neck ROM: Full Loose/Missing/Broken Teeth: No Heart: ok Lungs: ok Assessment and Plan Assessment Anesthesia Assessment: Anesthesia Plan Discussed Final Anesthetic Review Family History of Problems with Anesthesia: No History of Problems with Anesthesia: No NPO: Yes ASA Class: II Final Preanesthetic Review: No Changes in Pt Med Stat, Meds/Allgs Chart Reviewed, Consent Obtained/Reviewed and Anes Risks/Benef Reviewed Patient Risk: Low Procedure Risk: Intermediate Anesthetic Plan Anesthetic Plan: Agree w/ Assess. and Plan and TIVA Disposition: Standard PACU
[2024-08-06 08:12] VITALS: BP 142/89; PULSE 79; RESP 14; TEMP 36.9; O2SAT 99; BMI 24.6
[2024-08-06] MEDS: Lactated Ringers 1,000 ML 100 ML IVCONT (08:23)
[2024-08-06 09:43] VITALS: BP 103/60; PULSE 76; RESP 18; TEMP 37.1; O2SAT 97
--- NOTE | 2024-08-06 09:49 | P.BOP_ITS ---
Brief Operative Note Date of Service: 08/06/24 Pre-op diagnosis: Dysphagia, Screening Post-op diagnosis: other (Esophageal ring, gastritis, colon polyp) Procedure: EGD with bx, and Balloon dilation of EG Junction with an 18mm to 19mm to 20mm balloon, Colonoscopy to the cecum and TI with bx/removal of polyp Surgeon: Reed Trevino MD Anesthesia: MAC Was an Alpine Guide used for this Procedure?: No Estimated blood loss (mL): 2.0 Pathology: other (A. Gastric antrum B. Cecal polyp) Condition: stable Disposition: PACU
[2024-08-06 10:00] VITALS: BP 113/71; PULSE 72; RESP 18; TEMP 37; O2SAT 99
--- NOTE | 2024-08-06 10:11 | OP_ITS ---
DATE OF SERVICE: 08/06/2024 SURGEON: Reed Trevino MD INDICATIONS: The patient presents for evaluation of intermittent dysphagia, family history of colon cancer, personal history of tubular adenoma of the colon, and colorectal cancer screening. Full consent was obtained from her for both procedures, including risks of bleeding and perforation. PREOPERATIVE DIAGNOSIS: POSTOPERATIVE DIAGNOSIS: PROCEDURE PERFORMED: Esophagogastroduodenoscopy with balloon dilation of gastroesophageal junction, and biopsies, and colonoscopy to the cecum and terminal ileum with biopsy and removal of polyp. ESTIMATED BLOOD LOSS: COMPLICATIONS: ANESTHESIA: Medication use; monitored anesthesia care. ASSISTANTS: SPECIMENS: PREOPERATIVE DIAGNOSES: Dysphagia, family history of colon cancer, personal history of tubular adenoma of the colon, colorectal cancer screening. POSTOPERATIVE DIAGNOSES: Dysphagia, family history of colon cancer, personal history of tubular adenoma of the colon, colorectal cancer screening, hiatal hernia, nonobstructing esophageal ring, gastritis, colon polyp, diverticulosis, and internal hemorrhoids. DESCRIPTION OF PROCEDURE: The patient was placed in the left lateral decubitus position. The Olympus videogastroscope was passed in the posterior oropharynx and upper esophagus under direct vision. The scope was passed slowly into the distal esophagus. The gastroesophageal junction appeared at 34 cm. There was some edema and erythema consistent with reflux, but no evidence of any esophagitis nor Moore esophagus. Just above this was what appeared to be a nonobstructing esophageal ring that was not circumferential. The scope easily passed this into a small hiatal hernia. The scope was advanced to the pylorus and the duodenum was cannulated to the descending portion. The duodenum including the bulb appeared normal without mass or ulceration. The scope withdrawn back to the stomach. There was some minimal amounts of coffee-grounds material in the stomach. There was some underlying gastritis in the antrum and body of the stomach, but without erosions or ulceration. There was good peristalsis. Biopsies were obtained from the antrum. The scope was retroflexed visualizing the proximal stomach carefully which appeared normal, without any sign of mass or ulceration. The scope was straightened and withdrawn back to the esophagus. I did use a [employer] incremental balloon to dilate the distal esophagus and gastroesophageal junction from 18 mm to 19 mm to 20 mm at the recommended pressure for between 30 and 60 seconds each. There was a small amount of heme noted postdilation. The scope was then withdrawn through the remainder of the esophagus, which appeared normal. The scope was withdrawn from the patient. She was turned around for colonoscopy. The digital rectal exam revealed no sign of any condylomatous tissue or any other abnormalities. The Olympus videopediatric colonoscope was entered into the rectum and advanced easily to the cecum. Once in the cecum, I did identify normal-appearing cecal pouch with appendiceal orifice and a normal-appearing ileocecal valve. The entire cecum was well visualized and did appear normal other than approximately 3 or 4 mm polyp in the cecum, which was biopsied and completely removed with cold biopsy forceps. The terminal ileum was cannulated and appeared normal. The scope was withdrawn back in the colon. The scope was slowly withdrawn assessing all mucosal surfaces carefully. Preparation was excellent after the 2 day prep. I did not visualize any sign of other polyps, colitis, nor angiodysplasia. There was a mild amount of sigmoid diverticulosis. In the rectum, the scope was retroflexed visualizing internal hemorrhoids, but no other pathology. The rectal mucosa appeared normal. The scope was straightened and withdrawn from the patient. She tolerated the procedure well and was returned to the recovery area in stable condition. IMPRESSION: 1. Gastritis. 2. Hiatal hernia, gastroesophageal reflux. 3. Nonobstructing distal esophageal ring, status post balloon dilation. 4. Colon polyp. 5. Diverticulosis. 6. Internal hemorrhoids. PLAN: The results of biopsy will be checked. I would recommend a repeat colonoscopy in 5 years for further screening and surveillance. Given the upper endoscopy findings and her history. I have instructed her to begin omeprazole 20 mg daily, either [id number] or prescription if her insurance will cover that. I did advise her not to use any aspirin or NSAIDs for at least 1 or 2 weeks. If she is doing well, then I do not think she will need to see me in the office for followup, but I did advise her to certainly call if she has any problems or questions. If H pylori is present in the gastric biopsies, we could consider treating that depending upon her symptomatology and clinical course as well. This has been discussed with her . MD CASE Rosado/ELHAM / [id number] LM
== END 2024-08-06 10:44 | disposition home or self-care (01) ==
PROVIDERS: PCP Internal Medicine; Visit Provider Internal Medicine
PROC: (CPT 45380; principal; 2024-08-06 08:30)
PROC: 0DJD8ZZ Inspection of Lower Intestinal Tract, Via Natural or Artificial Opening Endoscopic (ICD-10-PCS; CPT 45378; 2024-08-06 08:30)
DX: Z12.11 Encounter for screening for malignant neoplasm of colon (principal); Z80.0 Family history of malignant neoplasm of digestive organs; Z86.0101 Personal history of adenomatous and serrated colon polyps; D12.0 Benign neoplasm of cecum; K57.30 Diverticulosis of large intestine without perforation or abscess without bleeding; K64.8 Other hemorrhoids; R13.10 Dysphagia, unspecified; K22.2 Esophageal obstruction; K29.50 Unspecified chronic gastritis without bleeding; K21.9 Gastro-esophageal reflux disease without esophagitis; K44.9 Diaphragmatic hernia without obstruction or gangrene; Z79.899 Other long term (current) drug therapy; Z88.2 Allergy status to sulfonamides; Z91.040 Latex allergy status; Z98.890 Other specified postprocedural states
CPT/HCPCS: 45380; 43249; 43239; 88305; 88313; 88342; C1726; J2003; J2704; J3010

== ENCOUNTER 2024-08-18 07:16 | Outpatient (REF) | payer MEDICARE, OTHER, SELFPAY ==
--- OUTSIDE RECORDS SUMMARY | 2024-08-18 07:18 | XMS_ITS ---
Author Organization [facility] Address [address] [place] [address] Care Team Providers Care Chemical Processing Laborer Name Role Phone Vinita, Kartik Primary Care Provider Julianne Brown Unavailable [phone] Conner Pendleton Unavailable [phone] REASON FOR VISIT Check DME for 2nd pair Encounters Encounter Location Date Provider Diagnosis [facility] [address] [place] [address] 07/22/2024 Conner Pendleton Plan Of Treatment No Information Progress Notes * Kym AMADO MDOB: 8 (64 yo F)Acc No.[id number]:07/22/2024 Patient:?Kym AMADO :1960???Age:64 Y???Sex:Female Address:[address] [place] [address], [address] * * Date:?
--- OUTSIDE RECORDS SUMMARY | 2024-08-18 07:18 | XMS_ITS | Patient Health Record ---
Author [facility] Address [address] [place] [address] Care Team Providers Care Heavy Duty Press Operator Name Role Phone Shay Talamantes Primary Care Provider [phone] Julianne Brown Unavailable [phone] Conner Pendleton Unavailable [phone] Allergies Allergen (clinical drug ingredient) Drug/Non Drug Allergy documented on EMR Reaction Allergy Type Onset Date Status Latex Latex sensitive Allergy Active Substance with sulfonamide structure and antibacterial mechanism of action (substance) Sulfa Antibiotics hives Drug Allergy Active Reason For Referral No Information Medications Medication SIG (Take, Route, Frequency, Duration) Notes Start Date End Date Status Voltaren 1 % as directed Externally Active Fluocinonide 0.05 % External for 14 Active tiZANidine HCl Activ e buPROPion HCl ER (XL) 300 MG Oral for 90 Active Physical Therapy . . . 2-3x/week for 3- 4 weeks Active Custom Orthotics as directed A ctive Immunizations Vaccine Route Administration Date Status Comme nts COVID-19 Pfizer BioNTech Vaccine Unknown 02/19/2022 Administered 07/16/20,08/04/202021 Social History Tobacco Use: Social History Observation Description Date Details (start date - stop date) Never Smoker NA - NA Tobacco Use/Smoking Question Answer Notes Are you a: nonsmoker Additional Findings: Tobacco Non-User Current no n-smoker Alcohol Screen Question Answer Notes Did you have a drink containing alcohol in the p ast year? Yes Points 0 Interpretation Negative Tobacco use other than smoking: Question Answer Notes Are you an other tobacco user? No Problems Problem Type SNOMED Code ICD Code Onset Dates Problem Status W/U Status Risk Notes Problem Localized, primary osteoarthritis of the ankle and/or foot (717214083) Primary osteoarthrit is, left ankle and foot (M19.072) Active confirmed Problem [id number] Hammer toe of left foot (M20.42) Active confirmed Vital Signs Heart Rate 85 /min 07/17/2024 Blood pressure diastolic 80 mm Hg 07/22/2024 Height 5ft2in in 07/22/2024 Blood pressure systolic 120 mm Hg 07/22/2024 Weight 138 lbs 07/22/2024 BMI 25.24 kg/m2 07/22/2024 Encounters Encounter Location Date Provider Diagnosis [address] [address] 07/17/2024 Conner Pendleton Pain in left foot M79.672 ; Metatarsalgia, left foot M77.42 ; Primary osteoarthritis, left ankle and foot M19.072 and Anterior tibialis tendinitis of left leg M76.812 [facility] [address] 07/22/2024 Julianne Brown Pain in left foot M79.672 ; Metatarsalgia, left foot M77.42 ; Hammer toe of left foot M20.42 ; Flat foot [pes planus] (acquired), right foot M21.41 and Flat foot [pes planus] (acquired), left foot M21.[address] [address] 07/22/2024 Conner Pendleton [address] [address] 07/22/2024 Julianne Brown Assessments Encounter Date Diagnosis (ICD Code) Assessment Notes Treatment Notes Treatment Clinical Notes Section Notes 07/17/2024 Pain in left foot (ICD-10 - M79.672) 07/17/2024 Metatarsalgia, left foot (ICD-10 - M77.42) 07/22/2024 Pain in left foot (ICD-10 - M79.672) 07/22/2024 Metatarsalgia, left foot (ICD-10 - M77.42) 07/22/2024 Hammer toe of left foot (ICD-10 - M20.42) 07/17/2024 Primary osteoarthritis, left ankle and foot (ICD-10 - M19.072) 07/17/2024 Anterior tibialis tendinitis of left leg (ICD-10 - M76.812) 07/22/2024 Flat foot [pes planus] (acquired), right foot (ICD-10 - M21.41) 07/22/2024 Flat foot [pes planus] (acquired), left foot (ICD-10 - M21.42) Plan Of Treatment Pending Test Test Name Order Date X ray : Foot, left 3V 05/18/2022 X ray : Foot, left 3V 07/22/2024 Insurance Providers Payer Name Payer Address Payer Phone Subscriber Number Group Number Insured Name Patient Relationship to Insured Coverage Start Date Coverage End Date Medicare [employer] [address] [place] [address] [id number] Kym Amado Self - patient is the insured 3 for Life [address] [place] [address] [id number] Blu Amado Spouse - patient is the spouse of the insured 3 Medical (General) History Medical History History ICD Code Anxiety Back pain Broken bones covid-19 Depression Chicken pox Measles Mumps chronic sinusitis Surgical History Surgery Date(Month/Year) eyelid rectal lesion 2006
--- OUTSIDE RECORDS SUMMARY | 2024-08-18 07:18 | XMS_ITS | Patient Health Record ---
Author Organization [facility] Address [address] [place] [address] Care Team Providers Care Legal Investigator Name Role Phone SHAY GOLDSMITH Primary Care Provider Reed Mitchell [phone] Allergies Allergen (clinical drug ingredient) Drug/Non Drug Allergy documented on EMR Reaction Allergy Type Onset Date Status Sulfa Unknown Drug Allergy Active Latex Gloves Unknown Drug Allergy Acti ve Results Component Value Reference Range Notes Pathology (Not yet reviewed by provider) Interpretation: Performing Lab:[facility], [address] [place] [phone] Notes/Report: Name: Mannie Amado ge/Sex: 64/F : 1960 Unit#: [id number] Attend Dr: Reed Trevino MD Re08/06/24 Status : [facility] Location: [facility] Disch: SPEC : [id number] RECD : 08/06/24 STATUS: KEVIN MARTÍNEZ NUM: [id number] VIPIN: 08/06/[address] [facility] [address]: Reed Trevino MD ENTERED: 08/06/24 41 SP TYPE: Surgical OTHR DR: Shay Goldsmith MD ORDERED: HE Stain/6, Gross Micro L4/2, IHC, Special st. 2, H. pylori, AB/PAS THIS IS A CORRECT ED REPORT 08/11/24 This is a corrected report. Any previous version s are stored internally and are available if necessary. Diagnosis A. Stomach, antrum, biopsy: Antral-type mucosa with mild chronic inactive inflammation; no Helicobacter organisms seen. B. Cecum, polypectom y: Tubular adenoma; negative for high-grade dysplasia or carcinoma; multiple additional levels examined. Note: Corrected report not e (08/11/2024): After review of deeper sections, change the diagnosis in part B from surf raymundo hyperplastic changes to tubular adenoma. No other changes are made. Clinical History Pre-Op Dx: Dysphagia, unspecified Post-Op Dx: Gastriti s, reflux, hiatal hernia, polyp, diverticulitis, hemorrhoids Microscopic Description A, B. Microscopic se ctions examined. No metaplastic changes are seen, supported by AB/PAS stains (A); no Helic obacter organisms are seen, supported by H. pylori immunostain (A). Material Received A. Gastric antrum bx's B. Cecum polyp Gross Description Received in two parts. Part A: Received in formalin labeled ?gastric antrum bx's? are 3 calero and calero-pink irregular and rectangular tiss ue fragments ranging from 0.2-0.35 cm, submitted in toto in a cassette labeled A. Part B: Received in formalin labeled ?cecum polyp? is a 0.2 cm calero-pink irregular tissue fragment, submitted in toto in a cassette labeled B. CEDS Special studies orde red and performed: Immunostain for H. pylori on A; AB/PAS stains on A CONTINUED ON NEXT PAGE Name: Mannie Amado ge/Sex: 64/F : 1960 Unit#: [id number] Attend Dr: Reed Trevino MD Re08/06/24 [place] [facility] [facility] Disch: SPEC : [id number] RECD : 08/06/24 STATUS: KEVIN MARTÍNEZ NUM: [id number] VIPIN: 08/06/[address] [facility] [address]: Reed Trevino MD ENTERED: 08/06/24- 41 SP TYPE: Surgical OTHR DR: Shay Goldsmith MD ORDERED: HE Stain/6, Gross Micro L4/2, IHC, Special st. 2, H. pylori, AB/PAS Copies To: Shay Goldsmith MD [facility] Primary Care,[address] [place] [address] [email or web address] Reed Trevino MD [facility] [address] [place] [address] Signed (si gnature on file) William Celestin MD 08/11/24 1815 END OF REPORT Reason For Referral No Information Medications Medication SIG (Take, Route, Frequency, Duration) Notes Start Date End Date Status Biotin 10 MG 1 tablet Orally Once a day for 30 day(s) Active Iron 325 (65 Fe) MG 1 tablet Orally Once a day for 30 day(s) PRN for blood donations Active tiZANidine HCl 4 MG Oral for 30 SOMA Active Omeprazole 20 MG 1 capsule 1/2 to 1 hour before morning meal Orally Once a day for 30 days 08/07/2024 Active Multivitamin Adults - as directed Orally Active Soma 325mg PRN Not-Yesica g Immunizations Vaccine Route Administration Date Status Comme nts Influenza Unknown 03/18/2024 Administered Social History Alcohol Screen Question Answer Notes Did you have a drink contain ing alcohol in the past year? Yes How often did you have a dri nk containing alcohol in the past year? 2 to 4 times a month (2 points) How many drinks did you have on a typical day when you were drinking in the past year? 1 or 2 drinks (0 point) How often did you have 6 or more drinks on one occasion in the past year? Never (0 point) Points 2 Interpretation Negative Section Notes: Nonsmoker; no sig alchol Nonsmoker; no sig alcohol Nonsmoker; no sig alcohol Problems Problem Type SNOMED Code ICD Code Onset Dates Problem Status W/U Status Risk Notes Problem 979121514 Encounter for screening for malignant neoplasm of colon (Z12.11) Active confirmed Problem 818893519 History of adenomatous polyp of colon (Z86.010) Active confirmed Problem Dysphagia (60647323) Dysphagia (R13.10) Active confirmed Problem 483075548621153 Preprocedural examination (Z01.818) Active confirmed Problem 037981310 Family history of colon cancer (Z80.0) Active confirmed Vital Signs Temperature 98.2 degrees Fahrenheit 04/09/2024 Blood pressure diastolic 00 mm Hg 04/09/2024 Height 62 in 04/09/2024 Blood pressure systolic 000 mm Hg 04/09/2024 Weight 135 lb 2 oz lbs 04/09/2024 BMI 24.71 kg/m2 04/09/2024 Encounters Encounter Location Date Provider Diagnosis [facility] [address] [place], [place] [id number] 08/06/[address] [facility] [address] [place] [phone] 04/09/2024 Reed Trevino History of adenomatous polyp of colon Z86.010 ; Dysphagia R13.10 ; Encounter for screening for malignant neoplasm of colon Z12.11 and Family history of colon cancer Z80.0 [facility] [address] [place] [phone] 08/07/2024 Reed Trevino Assessments Encounter Date Diagnosis (ICD Code) Assessment Notes Treatment Notes Treatment Clinical Notes Section Notes 04/09/2024 History of adenomatous polyp of colon (ICD-10 - Z86.010) Overall, Mannie appears quite well. Given her previous history of a tubular adenoma of the colon, significant family history of colon cancer in her brother in his 50s, and her last colonoscopy being over 5 years ago, I did recommend a followup colonoscopy for further screening purposes. We did review the rationale for that regard to colon cancer prevention. Full consent is obtained for this, including risks of bleeding and perforation. The procedure will be done with monitored anesthesia care. In regard to her occasional episodes of dysphagia we did review that these episodes sound like some transient esophageal obstruction. She may have an esophageal ring causing some obstruction of solid food. As such, I did recommend she undergo an upper endoscopy with possible balloon dilation on the same day as her colonoscopy. Full consent was obtained from her for this as well, including risks of bleeding and perforation. This procedure will be done with monitored anesthesia care as well. I did advise her to be careful eating and to call me if the episodes become more frequent such that we can have her undergo an upper endoscopy and dilation sooner, rather than later. Mannie was comfortable with this plan. Thank you again for allowing me to participate in Mannie's care. I shall continue to keep you advised of her progress. 04/09/2024 Dysphagia (ICD-10 - R13.10) Overall, Mannie appears quite well. Given her previous history of a tubular adenoma of the colon, significant family history of colon cancer in her brother in his 50s, and her last colonoscopy being over 5 years ago, I did recommend a followup colonoscopy for further screening purposes. We did review the rationale for that regard to colon cancer prevention. Full consent is obtained for this, including risks of bleeding and perforation. The procedure will be done with monitored anesthesia care. In regard to her occasional episodes of dysphagia we did review that these episodes sound like some transient esophageal obstruction. She may have an esophageal ring causing some obstruction of solid food. As such, I did recommend she undergo an upper endoscopy with possible balloon dilation on the same day as her colonoscopy. Full consent was obtained from her for this as well, including risks of bleeding and perforation. This procedure will be done with monitored anesthesia care as well. I did advise her to be careful eating and to call me if the episodes become more frequent such that we can have her undergo an upper endoscopy and dilation sooner, rather than later. Mannie was comfortable with this plan. Thank you again for allowing me to participate in Mannie's care. I shall continue to keep you advised of her progress. 04/09/2024 Encounter for screening for malignant neoplasm of colon (ICD-10 - Z12.11) Stop Iron for 1 week before the procedure Overall, Mannie appears quite well. Given her previous history of a tubular adenoma of the colon, significant family history of colon cancer in her brother in his 50s, and her last colonoscopy being over 5 years ago, I did recommend a followup colonoscopy for further screening purposes. We did review the rationale for that regard to colon cancer prevention. Full consent is obtained for this, including risks of bleeding and perforation. The procedure will be done with monitored anesthesia care. In regard to her occasional episodes of dysphagia we did review that these episodes sound like some transient esophageal obstruction. She may have an esophageal ring causing some obstruction of solid food. As such, I did recommend she undergo an upper endoscopy with possible balloon dilation on the same day as her colonoscopy. Full consent was obtained from her for this as well, including risks of bleeding and perforation. This procedure will be done with monitored anesthesia care as well. I did advise her to be careful eating and to call me if the episodes become more frequent such that we can have her undergo an upper endoscopy and dilation sooner, rather than later. Mannie was comfortable with this plan. Thank you again for allowing me to participate in Mannie's care. I shall continue to keep you advised of her progress. 04/09/2024 Family history of colon cancer (ICD-10 - Z80.0) Overall, Mannie appears quite well. Given her previous history of a tubular adenoma of the colon, significant family history of colon cancer in her brother in his 50s, and her last colonoscopy being over 5 years ago, I did recommend a followup colonoscopy for further screening purposes. We did review the rationale for that regard to colon cancer prevention. Full consent is obtained for this, including risks of bleeding and perforation. The procedure will be done with monitored anesthesia care. In regard to her occasional episodes of dysphagia we did review that these episodes sound like some transient esophageal obstruction. She may have an esophageal ring causing some obstruction of solid food. As such, I did recommend she undergo an upper endoscopy with possible balloon dilation on the same day as her colonoscopy. Full consent was obtained from her for this as well, including risks of bleeding and perforation. This procedure will be done with monitored anesthesia care as well. I did advise her to be careful eating and to call me if the episodes become more frequent such that we can have her undergo an upper endoscopy and dilation sooner, rather than later. Mannie was comfortable with this plan. Thank you again for allowing me to participate in Mannie's care. I shall continue to keep you advised of her progress. Plan Of Treatment Pending Test Test Name Order Date Pathology 08/06/2024 Future Test Test Name Order Date COLONOSCOPY 02/20/2013 COLONOSCOPY 08/08/2018 UPPER GI ENDOSCOPY [place]ON DILATION OF ESOPH 04/09/2024 COLONOSCOPY 04/09/2024 Insurance Providers Payer Name Payer Address Payer Phone Subscriber Number Group Number Insured Name Patient Relationship to Insured Coverage Start Date Coverage End Date MEDICARE OF [place] [address] [place] [address] [phone] [id number] MANNIE AMADO Self - patient is the insured [employer] [address] [place] [address] [id number] MANNIE AMADO Self - patient is the insured Medical (General) History Medical History History ICD Code Back pain-lower back disc Denies CO,DM,CVA,Lung disease,renal dise ase Depression Negative colonoscopy in 2002 ; 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 Valles Colonoscopy in 04/2013-small tubular constantino noma removed, mild diverticulosis Negative screening colonoscopy in 02/2019 Surgical History Surgery Date(Month/Year) Dr Chen removed an anal condyloma in 2 008 Eyelid surgery
--- OUTSIDE RECORDS SUMMARY | 2024-08-18 07:19 | XMS_ITS | Continuity of Care Document ---
Author Organization [facility] [place] [address] [place] [address]- Care Team Providers Care Package Liner Name Role Phone Adam Manrique MD Primary Care Physician Encounter 07/14/24 - 07/21/24 [facility] [address], [address] [place] [address]- Attending Physician: Shay Talamantes MD Admitting Physician: MartinaastExamarilys , Provider Referring Physician: Shay Talamantes MD Encounter Type: OutPatient One Time Allergies, Adverse Reactions, Alerts Substance Criticality Severity Reaction Reaction Severity Status sulfa drugs 1 Rash Active Latex rash Active 1total body rash Results Radiology Reports * Exam Date Time Procedure Performing Provider Status 07/14/24 10:42 AM MM Digital Mammo Screening [place]; Auth (Verified) Notes: (MM Digital Mammo Screening) Reason For Exam: z12.31 screening RESULT: MM Digital Mammo Screening PROCEDURE: MM Digital Mammo Screening INDICATION: Screening for breast cancer. No known palpable abnormalities. COMPARISON: Multiple priors TECHNIQUE: Full-field digital CC and MLO 3D tomosynthesis images of both breasts were acquired. Computer-aided detection (CAD) was utilized in the interpretation of this study. DENSITY: The breast tissue is heterogeneously dense, which may obscure small masses. FINDINGS: No suspicious masses, suspicious microcalcifications, or areas of architectural distortion are seen in either breast to suggest malignancy. Vascular calcification in the RIGHT breast is again seen. IMPRESSION: No mammographic evidence of malignancy. RECOMMENDATION: Routine mammographic screening BI-RADS: 2 (Benign) Lay letter mailed to patient WSN: [id number] Ordering Physician: Shay Talamantes Dictated By: Viola Vergara MD, V Dictated Date/Time: 07/14/24 1:50 pm Reviewed By: Viola Vergara MD, V Signed By: Viola Vergara MD, V Signed Date/Time: 07/14/24 1:50 pm Transcribed By: CSJennifer Straightening Press Operator Date/Time: 07/14/24 1:47 pm Birads: Patient Care team information Care Team Personnel Name: Adam Manrique MD Position: S Physician - Primary Care Member Role: PCP Address: [address] [place] [address] Medical [facility] Physical Therapy [address] Telecom: Care Team Related Persons Name: ELIAS HAYWARD Insurance Providers Guarantor name: MANNIE CHAMORRO Health Plan Information #: 1 Payer: MEDICARE PART B OUTPT Member Number: [id number] Policy Number: NA Group Number: NA Health Plan Information #: 2 Payer: [employer] M[employer] A ONLY Member Number: [id number] Policy Number: NA Group Number: NA
--- OUTSIDE RECORDS SUMMARY | 2024-08-18 07:19 | XMS_ITS ---
Author Organization [facility] Address [address] [place] [address] Care Team Providers Care Foreign Service Officer Name Role Phone LEVY GOLDSMITH Primary Care Provider Reed Mitchell Unavailable [phone] Allergies Allergen (clinical drug ingredient) Drug/Non Drug Allergy documented on EMR Reaction Allergy Type Onset Date Status Sulfa Unknown Drug Allergy Active Latex Gloves Unknown Drug Allergy Acti ve REASON FOR VISIT Patient presents today for a recall colonoscopy Medications Medication SIG (Take, Route, Frequency, Duration) Notes Start Date End Date Status Biotin 10 MG 1 tablet Orally Once a day for 30 day(s) Active Iron 325 (65 Fe) MG 1 tablet Orally Once a day for 30 day(s) PRN for blood donations Active tiZANidine HCl 4 MG Oral for 30 SOMA Active Multivitamin Adults - as directed Orally Active Soma 325mg PRN Not-Takin g Social History Alcohol Screen Question Answer Notes [...] Interpretation Negative Section Notes: Nonsmoker; no sig alcohol Problems Problem Type SNOMED Code ICD Code Onset Dates Problem Status W/U Status Risk Notes Problem Dysphagia (52786476) Dysphagia (R13.10) Active confirmed Vital Signs Temperature 98.2 degrees Fahrenheit 04/09/20 24 Blood pressure systolic 000 mm Hg 04/09/20 24 Blood pressure diastolic 00 mm Hg 024 Height 62 in 04/09/2024 Weight 135 lb 2 oz lbs 04/09/2024 BMI 24.71 kg/m2 04/09/2024 Encounters Encounter Location Date Provider Diagnosis [facility] [address] [place] [address] 04/09/2024 Reed Trevino History of adenomato us polyp of colon Z86.010 ; Dysphagia R13.10 ; Encounter for screening for malignant neoplasm of colon Z12.11 and Family history of colon cancer Z80.0 Assessments Encounter Date Diagnosis (ICD Code) Assessment Notes Treatment Notes Treatment Clinical Notes Section Notes 04/09/2024 History of adenomatous polyp of colon (ICD-10 - Z86.010) Overall, Kym appears quite well. Given her previous history [...] endoscopy and dilation sooner, rather than later. Kym was comfortable with this plan. Thank you again for allowing me to participate in Kym's care. I shall continue to keep you advised of her progress. 04/09/2024 Dysphagia (ICD-10 - R13.10) Overall, Kym appears quite well. Given her previous history [...] endoscopy and dilation sooner, rather than later. Kym was comfortable with this plan. Thank you again for allowing me to participate in Kym's care. I shall continue to keep you advised of her progress. 04/09/2024 Encounter for screening for malignant neoplasm of colon (ICD-10 - Z12.11) Stop Iron for 1 week before the procedure Overall, Kym appears quite well. Given her previous history [...] endoscopy and dilation sooner, rather than later. Kym was comfortable with this plan. Thank you again for allowing me to participate in Kym's care. I shall continue to keep you advised of her progress. 04/09/2024 Family history of colon cancer (ICD-10 - Z80.0) Overall, Kym appears quite well. Given her previous history [...] endoscopy and dilation sooner, rather than later. Kym was comfortable with this plan. Thank you again for allowing me to participate in Kym's care. I shall continue to keep you advised of her progress. Plan Of Treatment Treatment Notes Assessment Notes Encounter for screening for malignant neoplasm of colon Stop Iron for 1 week before the procedur e Future Test Test Name Order Date UPPER GI ENDOSCOPY BALLOOON DILATION OF ESOPH 04/09/2024 COLONOSCOPY 04/09/2024 Next Appt Details Follow Up: prn, Reason: Progress Notes * KYM CHAMORRODOB:1960 (64 yo F)Acc No.[id number]:04/09/2024 Progress Notes Patient:?KYM CHAMORRO Provider:?Reed Trevino MD :1960???Age:64 Y???Sex:Female D ate:04/09/2024 Address:[address] [place] [address], [facility], [id number] Pcp:LEVY GOLDSMITH Subjective: * Chief Complaints: * ???Patient presents today fo r a recall colonoscopy * HPI: ???incontinence:? I saw Kym in consultation today in regard to further evaluation of her occasional dysphagia, personal history of a tubular adenoma of the colon, family history of colon cancer, and need for colorectal cancer screening. ?I last saw Kym in February 2019, at which time she underwent a negative followup screening colonoscopy. She presently feels well. Her bowel movements have been regular and without any signs of bleeding. She denies abdominal pain, jaundice, nor unintentional weight loss. Her family history is notable for her brother having from colon cancer in his early 50s. ?She enjoys a good appetite. She denies any significant heartburn, early satiety, nausea, nor vomiting. However, she does describe very occasional episodes of dysphagia to foods like chicken with what sounds like an esophageal obstruction with inability to swallow liquids. These episodes hav always resolved on their own and she has never needed to go to the ER. She has never had an upper endoscopy. ?Laboratories from February revealed a normal CBC, chemistries and renal function, and LFTs. * ROS:?General/Constitutional:?Change in appetite?denies.?Chills?denies.?Fatigue?denies.?Ophthalmologic:?Patient denies? Negative..?ENT:?Patient denies?Negative..?Respiratory:?Patient denies?No coughing/hemoptysis..?Cardiovascular:?Patient denies? No chest pain/orthopnea..?Gastrointestinal:?Comments?See HPI for details.?Genitourinary:?Patient denies? No dysuria/hematuria..?Musculoskeletal:?Patient denies? No specific arthralgias/myalgias..?Skin:?Patient denies?No rash/pruritus..?Neurologic:?Patient denies? No headaches/seizures..?Psychiatric:?Comments? Hx of depression-on meds.? * Medical History:? 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 * Family History:?Father: funmi haley?Mother: , diagnosed with Heart disease.?Siblings: Brother had colon cancer at age 50 and at age 57.? No family history of liver cancer. Brother of colon cancer. * Social History:?Tobacco Use:?Tobacco Use/Smoking?Are you a: nonsmoker.?Drugs/Alcohol:?Alcohol Screen?Did you have a drink containing alcohol in the past year??Yes,?How often did you have a drink containing alcohol in the past year??2 to 4 times a month (2 points),?How many drinks did you have on a typical day when you were drinking in the past year??1 or 2 drinks (0 point),?How often did you have 6 or more drinks on one occasion in the past year??Never (0 point),?Points?2,?Interpretation?Negative.?Miscellaneous:?Marital status: . Occupation: hairdresser. ???Nonsmoker; no sig alcohol. * Medications:?TakingMultivita min Adults - Tablet as directed Orally Iron 325 (65 Fe) MG Tablet 1 tablet Orally Once a day, Notes: PRN for blood donationsBiotin 10 MG Tablet 1 tablet Orally Once a daytiZANidine HCl 4 MG Tablet Oral , Notes: SOMATaking Multivitamin Adults - Tablet as directed Orally Taking Iron 325 (65 Fe) MG Tablet 1 tablet Orally Once a day, Notes: PRN for blood donationsTaking Biotin 10 MG Tablet 1 tablet Orally Once a dayTaking tiZANidine HCl 4 MG Tablet Oral , Notes: SOMANot-Taking/PRNSoma 325mg , Notes: PRNMedication List reviewed and reconciled with the patientNot-Taking/PRN Soma 325mg , Notes: PRNMedication List reviewed and reconciled with the patient * Allergies:?SulfaLatex Gloves yes[Allergies Verified] Objective: * Vitals:?Wt: 135 lb 2 oz, Ht: 62 in, BMI:24.71 Index, BP: 000/00 mm Hg, Temp: 98.2. * Examination: ???General Examination: ?GENERAL APPEARANCE:?pleasant, well nourished, well developed, in no acute distress.?EYES:?sclera non-icteric.?ORAL CAVITY:?mucosa moist.?NECK/THYROID:?no cervical lymphadenopathy, neck supple.?SKIN:?nonjaundiced, no spider angiomata..?HEART:?S1, S2 normal.?LUNGS:?clear to auscultation bilaterally.?ABDOMEN:?normal bowel sounds, no guarding or rigidity, no hepatosplenomegaly, no masses palpable, soft, nontender, nondistended..?EXTREMITIES:?no edema.?NEUROLOGIC:?alert and oriented.? Assessment: * Assessment: 1.?Dysphagia - R13.10 (Prima ry)?2.?History of adenomatous polyp of colon - Z86.010?3.?Encounter for screening for malignant neoplasm of colon - Z12.11?4.?Family history of colon cancer - Z80.0? Overall, Kym appears quite well. Given her previous history [...] endoscopy and dilation sooner, rather than later. Kym was comfortable with this plan. Thank you again for allowing me to participate in Kym's care. I shall continue to keep you advised of her progress. Plan: * Treatment: 2.?History of adenomatous polyp of colon?Procedure: COLONOSCOPY (Ordered for 04/09/2024)* with a 2 Day prepsched for at 9:30 ammiralax 3.?Encounter for screening for malignant neoplasm of colon?Procedure: COLONOSCOPY (Ordered for 04/09/2024)* with a 2 Day prepsched for at 9:30 ammiralax Notes: Stop Iron for 1 week before the procedure??4.?Family history of colon cancer?Procedure: COLONOSCOPY (Ordered for 04/09/2024)* with a 2 Day prepsched for at 9:30 ammiralax * Procedure Codes:?3017F COLOR ECTAL CA SCREEN DOC [id number] TOBACCO [id number] BP SCR NOT PRFRM REC REASON NOS * Preventive Medicine:? ??Urinary Incontinence:?Urinary Incontinence?Assessment:?Absent,?Plan of care documented:?No, reason not specified.? ??Screenings:?Fall Risk Screening?Fall Risk Assessment:?No falls in the past year,?Screening:?No falls in the past year,?Assessment:?Not performed, no reason specified,?Plan of Care:?Not documented, no reason specified.? * Follow Up:?prn * * Sign off status: Completed true * Provider:?Reed Trevino MD Date:? 024 Generated for Joselo castillo/Kiya/Jaceysmitting on:?08/18/2024 07:19 AM EDT History and Physical Notes * HPI (History of Present Illness) Category Sub-Category Detail Notes Category Not es incontinence I saw Kym in consultation today in regard to further evaluation of her occasional dysphagia, personal history of a tubular adenoma of the colon, family history of colon cancer, and need for colorectal cancer screening. I last saw Kym in February 2019, at which time she underwent a negative followup screening colonoscopy. She presently feels well. Her bowel movements have been regular and without any signs of bleeding. She denies abdominal pain, jaundice, nor unintentional weight loss. Her family history is notable for her brother having from colon cancer in his early 50s. She enjoys a good appetite. She denies any significant heartburn, early satiety, nausea, nor vomiting. However, she does describe very occasional episodes of dysphagia to foods like chicken with what sounds like an esophageal obstruction with inability to swallow liquids. These episodes hav always resolved on their own and she has never needed to go to the ER. She has never had an upper endoscopy. Laboratories from February revealed a normal CBC, chemistries and renal function, and LFTs. Examination Category Sub-Category Detail Notes Category Not es General Examination GENERAL APPEARANCE: pleasant , well nourished, well developed, in no acute distress EYES: sclera non-icteric NECK/THYROID: no cervical lymphade nopathy, neck supple HEART: S1, S2 normal LUNGS: clear to auscultatio n bilaterally ABDOMEN: normal bowel sounds, no guarding or rigidity, no hepatosplenomegaly, no masses palpable, soft, nontender, nondistended. NEUROLOGIC: alert and oriented SKIN: nonjaundiced, no spi toney angiomata. EXTREMITIES: no edema ORAL CAVITY: mucosa moist
--- OUTSIDE RECORDS SUMMARY | 2024-08-18 07:19 | XMS_ITS ---
Author Organization [facility] Address [address] [place] [address] Care Team Providers Care Library Customer Service Clerk Name Role Phone Shay Talamantes Primary Care Provider Julianne Brown [phone] REASON FOR VISIT OTs not in office Encounters Encounter Location Date Provider Diagnosis [facility] [address] [place] [address] 08/05/2024 Julianne Brown Plan Of Treatment No Information Progress Notes * Kym AMADO MDOB: (64 yo F)Acc No.[id number]:08/05/2024 Progress Note Patient:?Kym AMADO Provider:?Julianne Brown DPM :1960???Age:64 Y???Sex:Female D ate:08/05/2024 Address:[address] [place], [place] [id number] Pcp:Shay Talamantes Subjective: * Chief Complaints: * ???1. OTs not in office. * Medical History:? Objective: * Vitals:? Assessment: Plan: * Treatment: * Images: * The named appointment provid er may or may not be the originator of this progress note, and it is not deemed complete until electronically signed by the appointment provider. Sign off status: Pending * Provider:?Julianne Brown DPM Date:?03/ 09/2024 Generated for Joselo castillo/Kiya/Kelsea on:?08/18/2024 07:19 AM EDT
--- OUTSIDE RECORDS SUMMARY | 2024-08-18 07:19 | XMS_ITS ---
Author Organization [facility] Address [address] [place] [address] Care Team Providers Care Ancillary Services Manager Name Role Phone LEVY GOLDSMITH Primary Care Provider Reed Mitchell [phone] REASON FOR VISIT Omeprazole Rx Medications Medication SIG (Take, Route, Fr equency, Duration) Notes Start Date End Date Status Omeprazole 20 MG 1 capsule 1/2 to 1 h our before morning meal Orally Once a day for 30 days 08/07/2024 Active Encounters Encounter Location Date Provider Diagnosis [facility] [address] [place] [address] 08/07/2024 Reed Trevino Plan Of Treatment Medication Medication Name Sig Start Date Stop Date Notes Omeprazole 20 MG 1 capsule 1/2 to 1 h our before morning meal Orally Once a day for 30 days 08/07/2024 Progress Notes * MANNIE CHAMORRODOB:1960 (64 yo F)Acc No.[id number]:08/07/2024 Patient:?MANNIE CHAMORRO :1960???Age:64 Y???Sex:Female Address:[address] [place] [address] [place] [address] * Refills? Start Omeprazole Capsule Delayed Release, 20 MG, Orally, 30, 1 capsule 1/2 to 1 hour before morning meal, Once a day, 30 days, Refills=3 * true * Date:? Generated for Joselo castillo/Kiya/eTransmitting on:?08/18/2024 07:18 AM EDT
--- OUTSIDE RECORDS SUMMARY | 2024-08-18 07:19 | XMS_ITS ---
Author Organization [facility] Address [address] [place] [address] Care Team Providers Care Director Of Medical Review Name Role Phone LEVY GOLDSMITH Primary Care Provider Reed Mitchell [phone] REASON FOR VISIT dyshagia, screening, hc polyps,fam hx colon ca Encounters Encounter Location Date Provider Diagnosis [facility] Outpatient [address] [place] [phone] 08/06/2024 Reed Trevino Plan Of Treatment No Information Progress Notes * MANNIE CHAMORRODOB:1960 (64 yo F)Acc No.[id number]:08/06/2024 EGD and COL/MAC Patient:?MANNIE CHAMORRO Provider:?Reed Trevino MD :1960???Age:64 Y???Sex:Female D ate:08/06/2024 Address:[address] [place], [place] [id number] Pcp:LEVY GOLDSMITH Subjective: * Chief Complaints: * ???1. Dyshagia, screening, h c polyps,fam hx colon ca. * Medical History:? Objective: * Vitals:? Assessment: Plan: * Treatment: * * The named appointment provid er may or may not be the originator of this progress note, and it is not deemed complete until electronically signed by the appointment provider. Sign off status: Pending * Provider:?Reed Trevino MD Date:? 025 Generated for Joselo castillo/Kiya/eTransmitting on:?08/18/2024 07:19 AM EDT
[2024-08-18 10:31] LABS: Hematocrit 41.1 % (37.0-47.0); Hemoglobin 13.3 g/dl (12.0-16.0); Mean Corpuscular HGB Conc 32.4 g/dl (31.0-35.0); Mean Corpuscular Hemoglobin 30.6 pg (27.0-33.0); Mean Corpuscular Volume 94.7 fL (80.0-98.0); Mean Platelet Volume 10.3 fL (9.4-12.3); Platelet Count 195 X10*3/uL (160-400); Red Blood Count 4.34 X10*6/uL (4.20-5.50); Red Cell Distribution Width 13.1 % (11.0-16.0); White Blood Count 9.5 X10*3/uL (4.8-10.8)
[2024-08-18 10:52] LABS: Appearance Urine Clear; Color Urine Yellow; Glucose Urine UA Negative (Negative); Leukocyte Esterase Urine Negative (Negative); Nitrite Urine Negative (Negative); Urine Blood Negative (Negative); Urine Ketones Negative (Negative); Urine Protein Negative (Neg-Trace)
[2024-08-18 12:19] LABS: Alanine Aminotransferase 22 U/L (0-31); Alkaline Phosphatase 49 U/L (39-117); Anion Gap 9 (12-20); Aspartate Amino Transferase 25 U/L (5-31); Bilirubin Direct 0.1 mg/dL (0.0-0.5); Bilirubin Total 0.3 mg/dL (0.0-1.0); Blood Urea Nitrogen 17 mg/dL (9-16); Calcium 8.7 mg/dL (8.4-10.2); Carbon Dioxide 28 mmol/L (22-29); Chloride 110 mmol/L (96-108); Cholesterol 191 mg/dL (<200); Estimated Glomerular Filt Rate > 60; Glucose Random 89 mg/dL (60-115); HDL Cholesterol 81 mg/dL (>40); LDL Cholesterol Calculated 98 mg/dL (<100); Potassium 4.3 mmol/L (3.3-5.1); Sodium 143 mmol/L (135-145); Total Protein 6.4 g/dL (6.5-8.0); Triglycerides 61 mg/dL (<150)
[2024-08-18 12:36] LABS: Thyroid Stimulating Hormone 3.73 uIU/mL (0.32-4.0)
== END 2024-08-18 07:17 | disposition home or self-care (01) ==
LOC: HO.HMGCLDS 07:16
PROVIDERS: PCP Internal Medicine; Visit Provider Internal Medicine
DX: E78.00 Pure hypercholesterolemia, unspecified (principal)
CPT/HCPCS: 36415; 80048; 80061; 80076; 81003; 84443; 85027

== ENCOUNTER 2024-08-21 10:12 | Outpatient (AMB) | payer MEDICARE, OTHER, SELFPAY ==
[2024-08-21 10:28] VITALS: BP 120/70; PULSE 92; TEMP 36.4; O2SAT 97; BMI 25.8
--- NOTE | 2024-08-21 10:28 | A.OFFPC_ITS ---
Vital Signs 08/21/24 10:28 Height 5 ft 1.81 in Weight 140 lb 2 oz BMI 25.8 BP 120/70 Blood Pressure Location Lt brachial Position Sitting Pulse 92 Pulse Source Pulse Oximeter Temp 97.5 F Temp Source Temporal Artery Scan Pulse Oximetry (%) 97 Oxygen Delivery Method Room Air Intake Visit Reasons: Depression Intake Note: Patient is here to follow up on Depression. Wire Spooler Required: No Crank Hand: Not Required per policy Accompanied by: Self / Same As Patient Allergies latex Allergy (Verified 08/21/24 11:21) Unknown sulfa Allergy (Unknown, Uncoded 08/21/24 11:21) unknown Medication List - Last Reconciled 08/21/24 by Shay Talamantes MD bupropion HCl XL mg PO DAILY cetirizine (Zyrtec) mg ferrous sulfate (iron) 325 mg PO NEEDED multivitamin 1 tab PO DAILY omeprazole 20 mg PO DAILY tizanidine 4 mg PO Q8H Tobacco use date assessed: 08/21/24 Fall risk assessment: No Falls in past year Last assessed Fall Risk: 08/21/24 Dental Screening Dental Screen Date: 08/21/24 Did you have a dental visit in the last 12 months?: Yes Did you have a dental problem in the last 6 months where you did not have access to dental care?: No Was dental information given to patient?: Patient has dentist [facility] Medical History Anal condyloma Depression Back pain Synovial cyst of popliteal space [[place]], right knee Osteoarthritis of spine Major depression, recurrent Hypercholesterolemia Depression Arthritis, lumbar spine Surgical History History of endoscopy History of eyelid surgery History of colonoscopy (~02/24/19) Family History Father No problems noted. Mother No problems noted. Social History Housing: House Are you a primary intensive care medicine specialist to a significant other at home: No Do you presently have visiting nurse or other home services: No Alcohol intake: current Alcohol intake frequency: holidays/special occasions only Patient Tobacco Use Status: Never used Tobacco Tobacco use type: Cigarette e-Cigarette/Vaping Use: Never Used Second Hand Smoke Exposure: Yes service: No Current occupational status: employed Current occupational exposures/hazards: No Cognitive needs: No Hearing needs: No Vision needs: Yes (Contacts) Questionnaire PHQ-9 Over the last 2 weeks, how often have you been bothered by any of the following problems? 1. Little interest or pleasure in doing things: not at all 2. Feeling down, depressed, or hopeless: not at all 3. Trouble falling or staying asleep, or sleeping too much: not at all 4. Feeling tired or having little energy: not at all 5. Poor appetite or overeating: not at all 6. Feeling bad about yourself - or that you are a failure or have let yourself or your family down: not at all 7. Trouble concentrating on things, such as reading the newspaper or watching television: not at all 8. Moving or speaking so slowly that other people could have noticed. Or the opposite - being so fidgety or restless that you have been moving around a lot more than usual: not at all 9. Thoughts that you would be better off or of hurting yourself in some way: not at all Total score: 0 Depression Screening Interpretation: Negative Depression Screening Done: Yes Source: Developed by Drs. Reed Suresh, Kym Anaya, Christopher Drake and colleagues, with an educational alexis from [employer]. Thrive Questionnaire Date Thrive assessed: 08/21/24 I am a: Patient What is your living situation today?: I have a steady place to live Within the past 12 months, did the food you bought not last and you didn't have the money to get more?: Never true Within the past 12 months, did you worry whether your food would run out before you got money to buy more?: Never true Do you have trouble paying for medicines?: No Do you have trouble getting transportation to medical appointments?: No Do you have trouble paying your heating and electricity bill?: No Do you have trouble taking care of your child, family member or friend?: No Do you have trouble with day-to-day activities such as bathing, preparing meals, shopping, managing finances, etc.?: No Are you currently unemployed and looking for a job?: No Are you interested in more education?: No Currently or been in a relationship where the following occur: No concerns reported THRIVE Score: 0 AUDIT C Alcohol Use Questionnaire (AUDIT-C) 2. How many drinks containing alcohol do you have on a typical day when you are drinking?: 1 or 2 3. How often do you have six or more drinks on one occasion?: Never Total Score: 0 ANSHU-7 AMB Questionnaire ANSHU-7 Date ANSHU - 7 assessed: 08/21/24 Feeling nervous, anxious, or on edge: 0 = Not at all Not being able to stop or control worryin = Not at all Worrying too much about different things: 0 = Not at all Trouble relaxin = Not at all Being so restless that it is hard to sit still: 0 = Not at all Becoming easily annoyed or irritable: 0 = Not at all Feeling afraid as if something awful might happen: 0 = Not at all Total ANSHU-7 score (0-4 normal; 5-9 mild; 10-14 moderate; 15-21 severe): 0 Source: Developed by Drs. Reed Suresh, Kym Anaya, Christopher Drake and colleagues, with an educational alexis from [employer]. ANSHU-7 Assessment Billing ANSHU-7 Assessment Tool: ANSHU-7 Assessment 28292 Physical exam (Primary Care) Vital Signs: Last Vital Signs Temp 97.5 F 08/21/24 10:28 Pulse 92 08/21/24 10:28 BP 120/70 08/21/24 10:28 Pulse Ox 97 08/21/24 10:28 Oxygen Delivery Method Room Air 08/21/24 10:28 BMI result Body Mass Index 25.8 Tobacco/Smoking Status: Tobacco use Status Tobacco use date assessed 08/21/24 08/21/24 10:33 Patient Tobacco Use Status Never used Tobacco 08/21/24 10:30 Tobacco use type Cigarette 08/21/24 10:33 e-Cigarette/Vaping Use Never Used 08/21/24 10:30 PHQ-9: PHQ-9 Score PHQ-9: Total score 0 08/21/24 10:49 Depression Screening Interpretation: Negative Thrive Assessment: Date of Thrive Assessment Date Thrive assessed 08/21/24 08/21/24 10:33 Currently or been in a relationship where the following occur: No concerns reported Coding Level of Care Code Est Pt Level 4 (78970) Complex EM visit Add On G2211 Diagnoses Recurrent major depressive disorder, in full remission F33.42 Active/Remission status: in full remission Hypercholesterolemia E78.00 Arthritis, lumbar spine M47.816 Additional Codes ANSHU-7 Assessment Billing - ANSHU-7 Assessment Tool: ANSHU-7 Assessment 76183 ([id number]) Assessment & Plan Assessment & Plan (1) Major depression, recurrent: Code(s): F33.9 - Major depressive disorder, recurrent, unspecified Category: Medical Qualifiers: Active/Remission status: in full remission Qualified Code(s): F33.42 - Major depressive disorder, recurrent, in full remission Plan: Condition is stable, Welbutrin prescription refilled (2) Hypercholesterolemia: Code(s): E78.00 - Pure hypercholesterolemia, unspecified Category: Medical Plan: BW reviewed. (3) Arthritis, lumbar spine: Code(s): M47.816 - Spondylosis without myelopathy or radiculopathy, lumbar region Category: Medical Plan: DEXA scan ordered. Tizanidine dosage reduced to once a day Plan History of Present Illness The patient is a 64-year-old female presenting for medication management and routine health maintenance. She regularly takes bupropion and has been using Zyrtec each morning during the spring to manage her seasonal allergic rhinitis, which presents with symptoms of teary eyes and nasal congestion. She reports no stomach-related symptoms but has been advised to take omeprazole based on findings from an endoscopy and colonoscopy conducted by Dr. Trevino, noting she will seek clarification on the medication's intended duration. 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 Preventive health measures include recent mammography, colonoscopy, and routine health screenings, though she notes a lapse in bone density evaluations given her recent height decrease, prompting a planned DEXA scan. Her lifestyle includes regular exercise and a moderate alcohol intake, with no tobacco use reported. Social History - Employment: Hairdresser, experiences occupational musculoskeletal discomfort. - Exercise: Reports engaging in daily physical activity. - Alcohol Use: Moderate consumption, primarily wine with meals. - Smoking: Denies use. - Eye Health: Undergoes annual eye exams and wears contact lenses for vision correction. Review of Systems - Ears, Nose, Throat: Reports seasonal allergies with teary eyes and stuffy nose. - Gastrointestinal: Denies indigestion or stomach-related symptoms. - Musculoskeletal: Reports occasional musculoskeletal discomfort in the neck and shoulders, managed with medication. - Height: Notes decrease in height over recent years. Physical Exam General: Cooperative and healthy appearing Nutritional Appearance: Well nourished Orientation/consciousness: Patient oriented x3 Limitations: No limitations Head: Normal to inspection General: Appearance normal, both eyes and all related structures Neck: Normal visual inspection Chest: Normal palpation of entire chest wall Respiratory: Normal respiratory effort Neurology: Patient oriented x3 Results - Tests and Diagnostics: Blood work results were within normal range; recent endoscopy and colonoscopy performed. Plan I adjusted the tizanidine prescription to once daily for better alignment with the patient's use pattern, minimizing sedation. The patient will clarify with Dr. Trevino about taking omeprazole post-endoscopy findings. A DEXA scan is ordered due to a noted decrease in height. Health maintenance continues with regular screenings like mammograms and colonoscopies. The patient will continue taking Zyrtec for allergies when needed, and she maintains her bupropion regimen. Follow-up appointments will ensure ongoing monitoring and adjustments for her health care plan. Patient was informed and verbally consented to the use of an ambient scribe for clinic note documentation during this visit. Discussion Notes During our discussion, I detailed the rationale behind adjusting her tizanidine to once daily due to the patient's preference and its sedative effects. We addressed the potential need for ongoing omeprazole treatment by recommending she follow up with Dr. Trevino for clarification. I emphasized the importance of completing a DEXA scan due to her height decrease. Routine continued care involves expected mammograms and colonoscopies. I reassured the patient of appropriate ongoing management of her seasonal allergies with Zyrtec and continued bupropion use. We agreed on maintaining regular follow-up appointments to monitor these interventions and control effectively. Patient Instructions - Take tizanidine only once daily at bedtime as needed for neck and shoulder discomfort. - Contact Dr. Trevino to confirm duration and need for continued omeprazole use. - Continue taking Zyrtec for allergy symptoms when necessary. - Schedule and attend a DEXA scan for bone density assessment. - Maintain routine health screenings, including mammograms and colonoscopies. - Follow up as discussed for ongoing monitoring and care adjustments. - Engage in regular physical activity as currently practiced. - Continue current bupropion regimen. - Limit alcohol intake to moderate levels, as currently practiced.
--- OUTSIDE RECORDS SUMMARY | 2024-08-21 11:37 | XMS_ITS | Patient Health Record ---
Author Organization [facility] Address [address] [place] [address] Care Team Providers Care Enrollment Processor Name Role Phone SHAY GOLDSMITH Primary Care Provider Reed Mitchell [phone] Allergies Allergen (clinical drug ingredient) Drug/Non Drug Allergy documented on EMR Reaction Allergy Type Onset Date Status Sulfa Unknown Drug Allergy Active Latex Gloves Unknown Drug Allergy Acti ve Results Component Value Reference Range Notes Pathology (Not yet reviewed by provider) Interpretation: Performing Lab:[facility], [address] [place] [phone] Notes/Report: Name: Mannie Amado ge/Sex: 64/F : 1960 Unit#: [id number] Attend Dr: Reed Trevino MD Re08/06/24 Status : [facility] Location: [facility] Disch: SPEC : [id number] RECD : 08/06/24 STATUS: KEVIN MARTÍNEZ NUM: [id number] VIPIN: 08/06/[address] [facility] [address]: Reed Trevino MD ENTERED: 08/06/24 [...] Mannie Amado ge/Sex: 64/F : 1960 Unit#: [id number] Attend Dr: Reed Trevino MD Re08/06/24 Status : [facility] Location: [facility] Disch: SPEC : [id number] RECD : 08/06/24 STATUS: KEVIN MARTÍNEZ NUM: [id number] VIPIN: 08/06/[address] [facility] [address]: Reed Trevino MD ENTERED: 08/06/24- 41 SP TYPE: Surgical OTHR DR: Shay Goldsmith MD ORDERED: HE Stain/6, Gross Micro L4/2, IHC, Special st. 2, H. pylori, AB/PAS Copies To: Shay Goldsmith MD [facility] [place] [place] [address] [email or web address] Reed Trevino MD [facility] [address] [place] [address] Signed (si gnature on file) William Celestin [...] Problem Status W/U Status Risk Notes Problem [id number] Encounter for screening for malignant neoplasm of colon (Z12.11) Active confirmed Problem 277699963 History of adenomatous polyp of colon (Z86.010) Active confirmed Problem Dysphagia (81627435) Dysphagia (R13.10) Active confirmed Problem 463490016070063 Preprocedural examination (Z01.818) Active confirmed Problem 753523528 Family history of colon cancer (Z80.0) Active confirmed Vital Signs Temperature 98.2 degrees Fahrenheit 04/09/2024 Blood pressure diastolic 00 mm Hg 04/09/2024 Height 62 in 04/09/2024 Blood pressure systolic 000 mm Hg 04/09/2024 Weight 135 lb 2 oz lbs 04/09/2024 BMI 24.71 kg/m2 04/09/2024 Encounters Encounter Location Date Provider Diagnosis [facility] Outpatient [address] [place], [place] [id number] 08/06/2024 Reed Trevino [facility] [address] [place] [phone] 04/09/2024 Reed Trevino History of adenomatous polyp of colon Z86.010 ; Dysphagia R13.10 ; Encounter for screening for malignant neoplasm of colon Z12.11 and Family history of colon cancer Z80.0 [facility] [address] [place] [address] 08/07/2024 Reed Trevino Assessments Encounter Date Diagnosis (ICD Code) Assessment Notes Treatment Notes Treatment Clinical Notes Section Notes 04/09/2024 History of adenomatous polyp of colon (ICD-10 - Z86.010) Overall, aMnnie appears quite well. Given her previous history [...] MEDICARE OF [place] [address] [place] [address] [phone] [id number] MANNIE AMADO Self - patient is the insured [employer] [address] [place] [address] [id number] MANNIE AMADO Self - patient is the insured Medical (General) History Medical History History ICD Code Back pain-lower back disc Denies CA,DM,CVA,Lung disease,renal dise ase Depression Negative colonoscopy in 2002 ; 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 Valles Colonoscopy in 04/2013-small tubular constantino noma removed, mild diverticulosis Negative screening colonoscopy in 02/2019 Surgical History Surgery Date(Month/Year) Dr Chen removed an anal condyloma in 2 008 Eyelid surgery
--- OUTSIDE RECORDS SUMMARY | 2024-08-21 11:37 | XMS_ITS ---
Author Organization [facility] Address [address] [place] [address] Care Team Providers Care Plate Take Out Worker Name Role Phone LEVY GOLDSMITH Primary Care Provider Reed Mitchell [phone] REASON FOR VISIT Omeprazole Rx Medications Medication SIG (Take, Route, Fr equency, Duration) Notes Start Date End Date Status Omeprazole 20 MG 1 capsule 1/2 to 1 h our before morning meal Orally Once a day for 30 days 08/07/2024 Active Encounters Encounter Location Date Provider Diagnosis [facility] [address] [place] [phone] 08/07/2024 Reed Trevino Plan Of Treatment Medication Medication Name Sig Start Date Stop Date Notes Omeprazole 20 MG 1 capsule 1/2 to 1 h our before morning meal Orally Once a day for 30 days 08/07/2024 Progress Notes * MANNIE CHAMORRODOB:1960 (64 yo F)Acc No.[id number]:08/07/2024 Patient:?MANNIE CHAMORRO :1960???Age:64 Y???Sex:Female Address:[address] [place] [address] [place] [address] * Refills? Start Omeprazole Capsule Delayed Release, 20 MG, Orally, 30, 1 capsule 1/2 to 1 hour before morning meal, Once a day, 30 days, Refills=3 * true * Date:? Generated for Joselo castillo/Kiya/eTransmitting on:?08/21/2024 11:37 AM EDT
--- OUTSIDE RECORDS SUMMARY | 2024-08-21 11:37 | XMS_ITS ---
Author Organization [facility] Address [address] [place] [address] Care Team Providers Care Botanical Technical Officer Name Role Phone LEVY GOLDSMITH Primary Care Provider Reed Mitchell Unavailable [phone] Allergies Allergen (clinical drug ingredient) Drug/Non Drug [...] Status W/U Status Risk Notes Problem Dysphagia ([id number]) Dysphagia (R13.10) Active confirmed Vital Signs Temperature 98.2 degrees Fahrenheit 04/09/20 24 Blood pressure systolic 000 mm Hg 04/09/20 24 Blood pressure diastolic 00 mm Hg 024 Height 62 in 04/09/2024 Weight 135 lb 2 oz lbs 04/09/2024 BMI 24.71 kg/m2 04/09/2024 Encounters Encounter Location Date Provider Diagnosis [facility] [address] [place] [address] 04/09/2024 Reed Trevino History of adenomato us [...] Notes * KYM CHAMORRODOB:1960 (64 yo F)Acc No.[id number]:04/09/2024 Progress Notes Patient:?KYM CHAMORRO Provider:?Reed Trevino MD :1960???Age:64 Y???Sex:Female D ate:04/09/2024 Address:[address] [place] [address], [facility] Pcp:LEVY GOLDSMITH Subjective: * Chief Complaints: * [...] Procedure Codes:?3017F COLOR ECTAL CA SCREEN DOC RND9809G TOBACCO NON-LUSCL4974 BP SCR NOT PRFRM REC REASON NOS [...] MD Date:? 024 Generated for Joselo castillo/Kiya/Jaceysmitting on:?08/21/2024 11:37 AM EDT History and Physical Notes * [...]
--- OUTSIDE RECORDS SUMMARY | 2024-08-21 11:37 | XMS_ITS ---
Author Organization [facility] Address [address] [place] [address] Care Team Providers Care Waiter/Waitress Name Role Phone Shay Talamantes Primary Care Provider Julianne Brown [phone] REASON FOR VISIT DPM Refurb Encounters Encounter Location Date Provider Diagnosis [facility] [address] [place] [address] 07/22/2024 Julianne Brown Plan Of Treatment No Information Progress Notes * Kym AMADO MDOB: 8 (64 yo F)Acc No.[id number]:07/22/2024 Patient:?Kym AMADO :1960???Age:64 Y???Sex:Female Address:[address] [place] [address], [address] * * Date:?
--- OUTSIDE RECORDS SUMMARY | 2024-08-21 11:37 | XMS_ITS ---
Author Organization [facility] Address [address] [place] [address] Care Team Providers Care Nursing Information Systems Coordinator Name Role Phone Shay Talamantes Primary Care Provider [phone] Julianne Brown [phone] REASON FOR VISIT OTs not in office Encounters Encounter Location Date Provider Diagnosis [facility] [address] [place] [address] 08/05/2024 Julianne Brown Plan Of Treatment No Information Progress Notes * Kym AMADO MDOB: (64 yo F)Acc No.[id number]:08/05/2024 Progress Note Patient:?Kym AMADO Provider:?Julianne Brown DPM :1960???Age:64 Y???Sex:Female D ate:08/05/2024 Address:[address] [place], [place] [id number] Pcp:Shay Talamantes Subjective: * Chief Complaints: * [...] DPM Date:?03/ 09/2024 Generated for Joselo castillo/Kiya/Kelsea on:?08/21/2024 11:37 AM EDT
--- OUTSIDE RECORDS SUMMARY | 2024-08-21 11:37 | XMS_ITS | Patient Health Record ---
[facility] Address [address] [place] [address] Care Team Providers Care Credit Risk Review Officer Name Role Phone Shay Talamantes Primary Care Provider Julianne Brown Unavailable [phone] Conner Pendleton Unavailable [phone] Allergies Allergen (clinical drug ingredient) Drug/Non Drug Allergy documented on EMR Reaction Allergy Type Onset Date Status Latex Latex sensitive Allergy Active Substance with sulfonamide structure and antibacterial mechanism of action (substance) Sulfa Antibiotics hives Drug Allergy Active Reason For Referral No Information Medications Medication SIG (Take, Route, Frequency, Duration) Notes Start Date End Date Status Voltaren 1 % as directed Externally Active buPROPion HCl ER (XL) 300 MG Oral for 90 Active Fluocinonide 0.05 % External for 14 Active Custom Orthotics as directed A ctive tiZANidine HCl Activ e Physical Therapy . . . 2-3x/week for 3- 4 weeks Active Immunizations Vaccine Route Administration Date Status Comme nts COVID-19 Pfizer BioNTech Vaccine Unknown 02/19/2022 Administered 07/16/20,08/04/202021 Social History Tobacco Use: Social History Observation Description Date Details (start date - stop date) Never Smoker NA - NA Tobacco use other than smoking: Question Answer Notes Are you an other tobacco user? No Tobacco Control (Standard) Question Answer Notes Tobacco use: Nonsmoker Additional Findings: Tobacco non-user Current no nsmoker AUDIT-C (Standard) Question Answer Notes Did you have a drink containing alcohol in the p ast year? No Points 0 Interpretation Negative Problems Problem Type SNOMED Code ICD Code Onset Dates Problem Status W/U Status Risk Notes Problem Localized, primary osteoarthritis of the ankle and/or foot (585714454) Primary osteoarthrit is, left ankle and foot (M19.072) Active confirmed Problem 413120167 Hammer toe of left foot (M20.42) Active confirmed Vital Signs Heart Rate 85 /min 07/17/2024 Blood pressure diastolic 80 mm Hg 08/20/2024 Height 5ft2in in 08/20/2024 Blood pressure systolic 120 mm Hg 08/20/2024 Weight 138 lbs 08/20/2024 BMI 25.24 kg/m2 08/20/2024 Encounters Encounter Location Date Provider Diagnosis [address] [address] 07/17/2024 Conner Pendleton Pain in left foot M79.672 ; Metatarsalgia, left foot M77.42 ; Primary osteoarthritis, left ankle and foot M19.072 and Anterior tibialis tendinitis of left leg M76.[address] [address] 07/22/2024 Julianne Perica Pain in left foot M79.672 ; Metatarsalgia, left foot M77.42 ; Hammer toe of left foot M20.42 ; Flat foot [pes planus] (acquired), right foot M21.41 and Flat foot [pes planus] (acquired), left foot M21.[address] [address] 08/20/2024 Julianne Perica Pain in left foot M79.672 ; Metatarsalgia, left foot M77.42 ; Hammer toe of left foot M20.42 ; Flat foot [pes planus] (acquired), right foot M21.41 and Flat foot [pes planus] (acquired), left foot M21.[address] [address] 07/22/2024 Conner Pendleton [address] [address] 07/22/2024 Julianne Brown Assessments Encounter Date Diagnosis (ICD Code) Assessment Notes Treatment Notes Treatment Clinical Notes Section Notes 07/17/2024 Pain in left foot (ICD-10 - M79.672) 07/17/2024 Metatarsalgia, left foot (ICD-10 - M77.42) 07/22/2024 Pain in left foot (ICD-10 - M79.672) 07/22/2024 Metatarsalgia, left foot (ICD-10 - M77.42) 08/20/2024 Pain in left foot (ICD-10 - M79.672) 08/20/2024 Metatarsalgia, left foot (ICD-10 - M77.42) 07/22/2024 Hammer toe of left foot (ICD-10 - M20.42) 07/17/2024 Primary osteoarthritis, left ankle and foot (ICD-10 - M19.072) 07/17/2024 Anterior tibialis tendinitis of left leg (ICD-10 - M76.812) 07/22/2024 Flat foot [pes planus] (acquired), right foot (ICD-10 - M21.41) 08/20/2024 Hammer toe of left foot (ICD-10 - M20.42) 08/20/2024 Flat foot [pes planus] (acquired), right foot (ICD-10 - M21.41) 07/22/2024 Flat foot [pes planus] (acquired), left foot (ICD-10 - M21.42) 08/20/2024 Flat foot [pes planus] (acquired), left foot [...] Medicare National [employer] [address] [place] [address] [id number] Kym Amado Self - patient is the insured 3 for Life [address] [place] [address] [id number] Blu Amado Spouse - patient is the spouse of the insured 3 Medical (General) History Medical History History ICD Code Anxiety Back pain Broken bones covid-19 Depression Chicken pox Measles Mumps chronic sinusitis Surgical History Surgery Date(Month/Year) eyelid rectal lesion 2006
--- OUTSIDE RECORDS SUMMARY | 2024-08-21 11:38 | XMS_ITS ---
Author Organization [facility] Address [address] [place] [address] Care Team Providers Care Body Trimmer Upholsterer Name Role Phone LEVY GOLDSMITH Primary Care Provider Reed Mitchell [phone] REASON FOR VISIT dyshagia, screening, hc polyps,fam hx colon ca Encounters Encounter Location Date Provider Diagnosis [facility] Outpatient [address] [place] [id number] 08/06/2024 Reed Trevino Plan Of Treatment No Information Progress Notes * MANNIE CHAMORRODOB:1960 (64 yo F)Acc No.[id number]:08/06/2024 EGD and COL/MAC Patient:?MANNIE CHAMORRO Provider:?Reed Trevino MD :1960???Age:64 Y???Sex:Female D ate:08/06/2024 Address:[address] [place], [place] [id number] Pcp:LEVY GOLDSMITH Subjective: * Chief Complaints: * [...] MD Date:? 025 Generated for Joselo castillo/Kiya/eTransmitting on:?08/21/2024 11:37 AM EDT
== END 2024-08-21 11:18 | disposition home or self-care (01) ==
LOC: HO.HMCH 10:13
PROVIDERS: PCP Internal Medicine; Visit Provider Internal Medicine
DX: F33.42 Major depressive disorder, recurrent, in full remission (principal); E78.00 Pure hypercholesterolemia, unspecified; M47.816 Spondylosis without myelopathy or radiculopathy, lumbar region

== ENCOUNTER → 2024-08-21 10:12 | Outpatient (BNVA) | payer MEDICARE, OTHER, SELFPAY | PROVIDERS: PCP Internal Medicine; Visit Provider Internal Medicine | DX: F33.42 Major depressive disorder, recurrent, in full remission (principal); E78.00 Pure hypercholesterolemia, unspecified; M47.816 Spondylosis without myelopathy or radiculopathy, lumbar region | CPT/HCPCS: 96127; 99212 ==

== ENCOUNTER 2025-03-17 07:25 | Outpatient (REF) | payer MEDICARE, OTHER, SELFPAY ==
--- OUTSIDE RECORDS SUMMARY | 2024-08-05 10:00 | XMS_ITS ---
Author Organization [facility] Address [address] [place] [address] Care Team Providers Care Superintendent Logging Name Role Phone Shay Talamantes Primary Care Provider [phone] Julianne Brown [phone] REASON FOR VISIT OTs not in office Encounters Encounter Location Date Provider Diagnosis [facility] [address] [place] [address] 08/05/2024 Julianne Brown Plan Of Treatment No Information Progress Notes * Kym MAADO MDOB: (65 yo F)Acc No.[id number]:08/05/2024 Progress Note Patient: Kym WINSLOW Provider: Peri Brown DPM :1960 A ge:64 Y S ex:Female Date:08/05/2024 Address:[address] [place], [place] [id number] Pcp:Shay Talamantes Subjective: * Chief Complaints: * [...] Brown DPM Date: 0 08/05/2024 Generated for Printi ng/Faxing/eTransmitting on: 1 07:28 AM EDT
--- OUTSIDE RECORDS SUMMARY | 2024-08-06 04:30 | XMS_ITS ---
Author Organization [facility] Address [address] [place] [address] Care Team Providers Care Police Records Clerk Name Role Phone LEVY GOLDSMITH Primary Care Provider Reed Mitchell [phone] REASON FOR VISIT dyshagia, screening, hc polyps,fam hx colon ca Encounters Encounter Location Date Provider Diagnosis [facility] Outpatient [address] [place] [phone] 08/06/2024 Reed Trevino Colon cancer scree carol [...] Notes * MANNIE CHAMORRODOB:1960 (65 yo F)Acc No.[id number]:08/06/2024 EGD and COL/MAC Patient: MANNIE WINSLOW Provider: Iraida Trevino MD :1960 A ge:64 Y S ex:Female Date:08/06/2024 Address:[address] [place], [place] [id number] Pcp:LEVY GOLDSMITH Subjective: * Chief Complaints: * [...] Procedure Codes: 4 5380 COLONOSCOPY AND BIOPSY, 13925 ESOPH ENDOSCOPY, DILATION * * The named appointment provid er may or may not be the originator of this progress note, and it is not deemed complete until electronically signed by the appointment provider. Sign off status: Pending * Provider: Iraida Trevino MD Date: 0 08/06/2024 Generated for Joselo castillo/Kiya/Maribelitting on: 1 07:28 AM EDT
--- OUTSIDE RECORDS SUMMARY | 2025-03-17 07:27 | XMS_ITS | Patient Health Record ---
Author Organization [facility] Address [address] [place] [address] Care Team Providers Care Client Service Manager Name Role Phone Shay Talamantes Primary Care Provider Julianne Brown Unavailable [phone] Conner Pendleton Unavailable [phone] Allergies Allergen (clinical drug ingredient) Drug/Non Drug [...] Active buPROPion HCl ER (XL) 300 MG Oral; Duration: 90 Active Fluocinonide 0.05 % External; Duration: 14 Active Custom Orthotics as directed A ctive tiZANidine HCl Activ e Physical Therapy . . . 2-3x/week; Durat ion: 3-4 weeks Active Immunizations Vaccine Route Administration Date [...] primary osteoarthritis of the ankle and/or foot (239697539) Primary osteoarthrit is, left ankle and foot (M19.072) Active confirmed Problem Acquired hammer toe of left foot (1780469327378548) Hammer toe of left foot (M20.42) Active confirmed Vital Signs Heart Rate 85 /min 07/17/2024 Blood pressure diastolic 80 mm Hg 08/20/2024 Height 5ft2in in 08/20/2024 Blood pressure systolic 120 mm Hg 08/20/2024 Weight 138 lbs 08/20/2024 BMI 25.24 kg/m2 08/20/2024 Encounters Encounter Location Date Provider Diagnosis [address] [address] 07/17/2024 Conner Penldeton Pain in left foot M79.672 ; Metatarsalgia, left foot M77.42 ; Primary osteoarthritis, left ankle and foot M19.072 and Anterior tibialis tendinitis of left leg M76.[address] [address] 07/22/2024 Julianne Perica Pain in left foot M79.672 ; Metatarsalgia, left foot M77.42 ; Hammer toe of left foot M20.42 ; Flat foot [pes planus] (acquired), right foot M21.41 and Flat foot [pes planus] (acquired), left foot M21.[address] [address] 08/20/2024 Julianne Perica Pain in left foot M79.672 ; Metatarsalgia, left foot M77.42 ; Hammer toe of left foot M20.42 ; Flat foot [pes planus] (acquired), right foot M21.41 and Flat foot [pes planus] (acquired), left foot M21.[address] [address] 07/22/2024 Conner Pendleton [address] [address] 07/22/2024 Julianne Perica Assessments Encounter Date Diagnosis (ICD Code) Assessment [...] Medicare National [employer] [address] [place] [address] [id number] Kym Amado Self - patient is the insured 3 for Life [address] [place] [address] [phone] [id number] Blu Amado Spouse - patient is the spouse of the insured 3 Medical (General) History Medical History History ICD Code Anxiety Back pain Broken bones covid-19 Depression Chicken pox Measles Mumps chronic sinusitis Surgical History Surgery Date(Month/Year) eyelid rectal lesion 2006
--- OUTSIDE RECORDS SUMMARY | 2025-03-17 07:28 | XMS_ITS | Patient Health Record ---
Author Organization [facility] Address [address] [place] [address] Care Team Providers Care Vice President Of Development Name Role Phone LEVY GOLDSMITH Primary Care Provider Reed Mitchell [phone] Allergies Allergen (clinical drug ingredient) Drug/Non Drug Allergy documented on EMR Reaction Allergy Type Onset Date Status Sulfa Unknown Drug Allergy Active Latex Gloves Unknown Drug Allergy Acti ve Results Component Value Reference Range Notes Pathology (Not yet reviewed by provider) Interpretation: Performing Lab:[facility], [address] [place] [phone] Notes/Report: Reason For Referral No Information Medications Medication SIG (Take, Route, Frequency, Duration) Notes Start Date End Date Status Biotin 10 MG 1 tablet Orally Once a day; Duration: 30 day(s) Active Iron 325 (65 Fe) MG 1 tablet Orally Once a day; Duration: 30 day(s) PRN for blood donations Active tiZANidine HCl 4 MG Oral; Duration: 30 SOMA Active Omeprazole 20 MG 1 capsule 1/2 to 1 hour before morning meal Orally Once a day; Duration: 30 days 08/07/2024 Active Multivitamin Adults - as directed Orally Active Soma 325mg PRN Not-Takin g Immunizations Vaccine Route Administration Date Status [...] Problem Status W/U Status Risk Notes Problem Screening for malignant neoplasm of colon (339759155) Encounter for screening for malignant neoplasm of colon (Z12.11) Active confirmed Problem History of adenomatous polyp of colon (851796220) History of adenomatous polyp of colon (Z86.010) Active confirmed Problem Dysphagia (76248394) Dysphagia (R13.10) Active confirmed Problem Preprocedural examination (590264924564353) Preprocedural examination (Z01.818) Active confirmed Problem Family History of Cancer of Colon (Situation) (206851344) Family history of colon cancer (Z80.0) Active confirmed Vital Signs Temperature 98.2 degrees Fahrenheit 04/09/2024 Blood pressure diastolic 00 mm Hg 04/09/2024 Height 62 in 04/09/2024 Blood pressure systolic 000 mm Hg 04/09/2024 Weight 135 lb 2 oz lbs 04/09/2024 BMI 24.71 kg/m2 04/09/2024 Encounters Encounter Location Date Provider Diagnosis [facility] Outpatient [address] [place], [place] [phone] 08/06/2024 Reed Trevino Colon cancer screening Z12.11 ; History of colon polyps Z86.0100 ; Family history of colon cancer Z80.0 ; Colon polyps K63.5 ; Dysphagia R13.10 ; Schatzki's ring K22.2 ; Hiatal hernia K44.9 and Chronic gastritis K29.[address] [facility] [address] [place] [address] 04/09/2024 Reed Trevino History of adenomatous polyp of colon Z86.010 ; Dysphagia R13.10 ; Encounter for screening for malignant neoplasm of colon Z12.11 and Family history of colon cancer Z80.[address] [facility] [address] [place] [phone] 08/07/2024 Reed Trevino Assessments Encounter Date Diagnosis (ICD Code) Assessment Notes Treatment Notes Treatment Clinical Notes Section Notes 08/06/2024 Colon cancer screening (ICD-10 - Z12.11) 08/06/2024 History of colon polyps (ICD-10 - Z86.0100) 04/09/2024 History of adenomatous polyp of colon [...] to keep you advised of her progress. 08/06/2024 Family history of colon cancer (ICD-10 - Z80.0) 04/09/2024 Encounter for screening for malignant neoplasm [...] to keep you advised of her progress. 08/06/2024 Colon polyps (ICD-10 - K63.5) 04/09/2024 Family history of colon cancer (ICD-10 [...] to keep you advised of her progress. 08/06/2024 Dysphagia (ICD-10 - R13.10) 08/06/2024 Schatzki's ring (ICD-10 - K22.2) 08/06/2024 Hiatal hernia (ICD-10 - K44.9) 08/06/2024 Chronic gastritis (ICD-10 - K29.50) Plan Of Treatment Pending Test Test Name Order Date Pathology 08/06/2024 Future Test Test Name Order Date COLONOSCOPY 02/20/2013 COLONOSCOPY 08/08/2018 UPPER GI ENDOSCOPY [place] DILATION OF ESOPH 04/09/2024 COLONOSCOPY 04/09/2024 Insurance Providers Payer Name Payer Address Payer Phone Subscriber Number Group Number Insured Name Patient Relationship to Insured Coverage Start Date Coverage End Date MEDICARE OF [place] [address] [place] [address] [id number] KYM CHAMORRO Self - patient is the insured [employer] [address] [place] [address] [id number] KYM CHAMORRO Self - patient is the insured Medical (General) History Medical History History ICD Code Back pain-lower back disc Denies [place],DM,CVA,Lung disease,renal dise ase Depression Negative colonoscopy in 2002 ; 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 Valles Colonoscopy in 04/2013-small tubular constantino noma removed, mild diverticulosis Negative screening colonoscopy in 02/2019 Surgical History Surgery Date(Month/Year) Dr Chen removed an anal condyloma in 2 008 Eyelid surgery
[2025-03-17 10:29] LABS: Hematocrit 41.0 % (37.0-47.0); Hemoglobin 13.5 g/dl (12.0-16.0); Mean Corpuscular HGB Conc 32.9 g/dl (31.0-35.0); Mean Corpuscular Hemoglobin 30.5 pg (27.0-33.0); Mean Corpuscular Volume 92.6 fL (80.0-98.0); NRBC Abs Auto 0.030 X10*3/uL (0.0-0.012); NRBC Pct Auto 0.3 /100WBC (0.0-0.2); Platelet Count 230 X10*3/uL (160-400); Red Blood Count 4.43 X10*6/uL (4.20-5.50); White Blood Count 9.2 X10*3/uL (4.8-10.8)
[2025-03-17 10:37] LABS: Appearance Urine Clear; Glucose Urine UA Negative (Negative); PH >= 9.0 (5.0-9.0); Specific Gravity - Urine 1.015 (1.005-1.025)
[2025-03-17 10:55] LABS: Alanine Aminotransferase 25 U/L (0-31); Albumin Level 4.3 g/dL (3.5-5.0); Alkaline Phosphatase 55 U/L (39-117); Anion Gap 10 (12-20); Aspartate Amino Transferase 31 U/L (5-31); Blood Urea Nitrogen 17 mg/dL (9-16); Calcium 8.7 mg/dL (8.4-10.2); Carbon Dioxide 30 mmol/L (22-29); Chloride 106 mmol/L (96-108); Cholesterol 190 mg/dL (<200); Estimated Glomerular Filt Rate > 60; HDL Cholesterol 82 mg/dL (>40); Potassium 4.4 mmol/L (3.3-5.1); Sodium 142 mmol/L (135-145); Thyroid Stimulating Hormone 4.81 uIU/mL (0.32-4.0); Total Protein 6.3 g/dL (6.5-8.0); Triglycerides 40 mg/dL (<150)
== END 2025-03-17 07:26 | disposition home or self-care (01) ==
LOC: HO.HMGCLDS 07:25
PROVIDERS: PCP Internal Medicine; Visit Provider Internal Medicine
DX: E78.00 Pure hypercholesterolemia, unspecified (principal)
CPT/HCPCS: 36415; 80048; 80061; 80076; 81003; 84443; 85027

== ENCOUNTER 2025-03-19 15:05 | Outpatient (AMB) | payer MEDICARE, OTHER, SELFPAY ==
--- OUTSIDE RECORDS SUMMARY | 2024-08-05 10:00 | XMS_ITS ---
Author Organization [facility] Address [address] [place] [address] Care Team Providers Care Customer Experience Professional Name Role Phone Shay Talamantes Primary Care Provider [phone] Julianne Brown [phone] REASON FOR VISIT OTs not in office Encounters Encounter Location Date Provider Diagnosis [facility] [address] [place] [address] 08/05/2024 Julianne Brown Plan Of Treatment No Information Progress Notes * Kym AMADO MDOB: 8 (65 yo F)Acc No.[id number]:08/05/2024 Progress Note Patient: Kym WINSLOW Provider: Peri Brown DPM :1960 A ge:64 Y S ex:Female Date:08/05/2024 Address:[address] [place], [place] [phone] Pcp:Shay Talamantes Subjective: * Chief Complaints: * [...] 08/05/2024 Generated for Printi ng/Faxing/eTransmitting on: 1 07:00 PM EDT
--- OUTSIDE RECORDS SUMMARY | 2024-08-06 04:30 | XMS_ITS ---
Author Organization [facility] Address [address] [place] [address] Care Team Providers Care Curriculum Consultant Name Role Phone LEVY GOLDSMITH Primary Care Provider Reed Mitchell [phone] REASON FOR VISIT dyshagia, screening, hc polyps,fam hx colon ca Encounters Encounter Location Date Provider Diagnosis [facility] [address] [place] [phone] 08/06/2024 Reed Trevino Colon cancer scree carol [...] Notes * MANNIE CHAMORRODOB:1960 (65 yo F)Acc No.[id number]:08/06/2024 EGD and COL/MAC Patient: MANNIE WINSLOW Provider: Iraida Trevino MD :1960 A ge:64 Y S ex:Female Date:08/06/2024 Address:[address] [place], [place] [id number] Pcp:LEVY GOLDSMITH Subjective: * Chief Complaints: * [...] Procedure Codes: 4 5380 COLONOSCOPY AND BIOPSY, 05716 ESOPH ENDOSCOPY, DILATION * * The named appointment provid er may or may not be the originator of this progress note, and it is not deemed complete until electronically signed by the appointment provider. Sign off status: Pending * Provider: Iraida Trevino MD Date: 0 08/06/2024 Generated for Joselo castillo/Kiya/Maribelitting on: 1 07:00 PM EDT
--- NOTE | 2025-03-19 15:11 | MHC.PC.OV ---
Vital Signs 03/19/25 15:12 Height 5 ft 1.81 in Weight 134 lb BMI 24.7 BP 120/68 Blood Pressure Location Lt brachial Position Sitting Pulse 75 Pulse Source Pulse Oximeter Temp 97.3 F Temp Source Temporal Artery Scan Pulse Oximetry (%) 98 Oxygen Delivery Method Room Air Intake Visit Reasons: 6 month f/u Intake Note: Patient is here to follow up on OA, Hypercholesterolemia, Arthritis. Final Block Press Operator Required: No Medical Reviewer: Not Required per policy Accompanied by: Self / Same As Patient Allergies latex Allergy (Verified 03/19/25 15:12) Unknown sulfa Allergy (Unknown, Uncoded 03/19/25 15:12) unknown Tobacco use date assessed: 03/19/25 Fall risk assessment: 1 Fall in past year Last assessed Fall Risk: 03/19/25 Dental Screening Dental Screen Date: 08/21/24 [facility] Medical History Anal condyloma Depression Back pain Synovial cyst of popliteal space [Pickett], right knee Osteoarthritis of spine Major depression, recurrent Hypercholesterolemia Depression Arthritis, lumbar spine Surgical History History of endoscopy History of eyelid surgery History of colonoscopy (~02/24/19) Family History Father No problems noted. Mother No problems noted. Social History Housing: House Are you a primary workforce investment act career manager to a significant other at home: No Do you presently have visiting nurse or other home services: No Alcohol intake: current Alcohol intake frequency: holidays/special occasions only Patient Tobacco Use Status: Never used Tobacco Tobacco use type: Cigarette e-Cigarette/Vaping Use: Never Used Second Hand Smoke Exposure: Yes service: No Current occupational status: employed Current occupational exposures/hazards: No Cognitive needs: No Hearing needs: No Vision needs: Yes (Contacts) Questionnaire PHQ-9 Over the last 2 weeks, how often have you been bothered by any of the following problems? 1. Little interest or pleasure in doing things: not at all 2. Feeling down, depressed, or hopeless: not at all 3. Trouble falling or staying asleep, or sleeping too much: not at all 4. Feeling tired or having little energy: not at all 5. Poor appetite or overeating: not at all 6. Feeling bad about yourself - or that you are a failure or have let yourself or your family down: not at all 7. Trouble concentrating on things, such as reading the newspaper or watching television: not at all 8. Moving or speaking so slowly that other people could have noticed. Or the opposite - being so fidgety or restless that you have been moving around a lot more than usual: not at all 9. Thoughts that you would be better off or of hurting yourself in some way: not at all Total score: 0 Source: Developed by Drs. Reed Suresh, Kym Anaya, Christopher Drake and colleagues, with an educational alexis from [employer]. Thrive Questionnaire Date Thrive assessed: 08/21/24 I am a: Patient What is your living situation today?: I have a steady place to live Within the past 12 months, did the food you bought not last and you didn't have the money to get more?: Never true Within the past 12 months, did you worry whether your food would run out before you got money to buy more?: Never true Do you have trouble paying for medicines?: No Do you have trouble getting transportation to medical appointments?: No Do you have trouble paying your heating and electricity bill?: No Do you have trouble taking care of your child, family member or friend?: No Do you have trouble with day-to-day activities such as bathing, preparing meals, shopping, managing finances, etc.?: No Are you currently unemployed and looking for a job?: No Are you interested in more education?: No Please select the resources that you would like help with: None Currently or been in a relationship where the following occur: No concerns reported THRIVE Score: 0 AUDIT C Alcohol Use Questionnaire (AUDIT-C) 1. How often do you have a drink containing alcohol?: 2-3 times a week 2. How many drinks containing alcohol do you have on a typical day when you are drinking?: 1 or 2 3. How often do you have six or more drinks on one occasion?: Never Total Score: 3 ANSHU-7 AMB Questionnaire ANSHU-7 Date ANSHU - 7 assessed: 08/21/24 Feeling nervous, anxious, or on edge: 0 = Not at all Not being able to stop or control worryin = Not at all Worrying too much about different things: 0 = Not at all Trouble relaxin = Not at all Being so restless that it is hard to sit still: 0 = Not at all Becoming easily annoyed or irritable: 0 = Not at all Feeling afraid as if something awful might happen: 0 = Not at all Total ANSHU-7 score (0-4 normal; 5-9 mild; 10-14 moderate; 15-21 severe): 0 Source: Developed by Drs. Reed Suresh, Kym Anaya, Christopher Drake and colleagues, with an educational alexis from [employer]. Physical exam (Primary Care) Vital Signs: Last Vital Signs Temp 97.3 F 03/19/25 15:12 Pulse 75 03/19/25 15:12 BP 120/68 03/19/25 15:12 Pulse Ox 98 03/19/25 15:12 Oxygen Delivery Method Room Air 03/19/25 15:12 BMI result Body Mass Index 24.7 Tobacco/Smoking Status: Tobacco use Status Tobacco use date assessed 03/19/25 03/19/25 15:14 Patient Tobacco Use Status Never used Tobacco 03/19/25 15:14 Tobacco use type Cigarette 03/19/25 15:14 e-Cigarette/Vaping Use Never Used 03/19/25 15:14 PHQ-9: PHQ-9 Score PHQ-9: Total score 0 03/19/25 15:14 Thrive Assessment: Date of Thrive Assessment Date Thrive assessed 08/21/24 03/19/25 15:14 Currently or been in a relationship where the following occur: No concerns reported Coding Level of Care Code Est Pt Level 4 (63591) Complex EM visit Add On G2211 Diagnoses Recurrent major depressive disorder, in full remission F33.42 Active/Remission status: in full remission Assessment & Plan Assessment & Plan (1) Major depression, recurrent: Code(s): F33.9 - Major depressive disorder, recurrent, unspecified Category: Medical Qualifiers: Active/Remission status: in full remission Qualified Code(s): F33.42 - Major depressive disorder, recurrent, in full remission Plan: History of Present Illness - The patient is a 65-year-old female presenting for a routine wellness visit and to discuss preventative care measures. - The patient has not completed a bone density test that was ordered in August. She was unaware of the appointment scheduling process and did not receive a call for the test. - Thyroid function tests showed slight abnormalities, but no immediate intervention is required. The patient denies symptoms such as hair loss. - The patient experienced difficulty swallowing, which led to an endoscopy and subsequent prescription of omeprazole for 30 days. The medication was discontinued after the prescribed period. 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 She uses tizanidine as needed, primarily at bedtime, and requires a refill. - Preventative care measures are up to date, including colonoscopy, mammogram, and vaccinations for flu and COVID. Social History - Occupation: Hairdresser, which involves prolonged arm elevation leading to muscle tension. - Caregiver: The patient is taking care of her 91-year-old father. Review of Systems - Endocrine: Denies hair loss. - Gastrointestinal: Reports difficulty swallowing, resolved post-endoscopy. - Musculoskeletal: Reports muscle tension due to occupational strain. Physical Exam General: Cooperative and healthy appearing Nutritional Appearance: Well nourished Orientation/consciousness: Patient oriented x3 Limitations: No limitations Head: Normal to inspection General: Appearance normal, both eyes and all related structures Neck: Normal visual inspection Chest: Normal palpation of entire chest wall Respiratory: Normal respiratory effort Neurology: Patient oriented x3 Results - Labs: Thyroid function slightly abnormal. Plan - Reorder bone density test and ensure patient receives scheduling call. - Monitor thyroid function and reassess in future visits. No immediate treatment required unless symptoms develop. - Refill tizanidine prescription for muscle tension management. - Continue current preventative care measures, including vaccinations and screenings. Discussion Notes I discussed with the patient the importance of completing the bone density test and ensured that the scheduling process would be clarified. We reviewed her thyroid function results, which showed slight abnormalities, and agreed to monitor them without immediate intervention. I confirmed the refill of her tizanidine prescription for muscle tension and emphasized the continuation of her current preventative care measures, including vaccinations and screenings. Patient Instructions - Schedule and complete the bone density test as soon as possible. - Monitor for any symptoms related to thyroid function and report if they occur. - Take tizanidine as needed for muscle tension, primarily at bedtime. - Continue with current vaccinations and screenings as scheduled. Orders: Orders XR DEXA axial skeleton Today M81.0 - Age-related osteoporosis without current pathological fracture Medications: Refilled tizanidine 4 mg PO DAILY 90 tabs 1RF
[2025-03-19 15:12] VITALS: BP 120/68; PULSE 75; TEMP 36.3; O2SAT 98; BMI 24.7
--- OUTSIDE RECORDS SUMMARY | 2025-03-19 19:00 | XMS_ITS | Patient Health Record ---
Author Organization [facility] Address [address] [place] [address] Care Team Providers Care Operations Clerk Name Role Phone LEVY GOLDSMITH Primary Care Provider Reed Mitchell [phone] Allergies Allergen (clinical drug ingredient) Drug/Non Drug Allergy documented on EMR Reaction Allergy Type Onset Date Status Sulfa Unknown Drug Allergy Active Latex Gloves Unknown Drug Allergy Acti ve Results Component Value Reference Range Notes Pathology (Not yet reviewed by provider) Interpretation: Performing Lab:[facility], [address] [place] [phone] Notes/Report: Reason For Referral No Information Medications [...] Problem Screening for malignant neoplasm of colon (429544650) Encounter for screening for malignant neoplasm of colon (Z12.11) Active confirmed Problem History of adenomatous polyp of colon (324506773) History of adenomatous polyp of colon (Z86.010) Active confirmed Problem Dysphagia (32844652) Dysphagia (R13.10) Active confirmed Problem Preprocedural examination (102100020813758) Preprocedural examination (Z01.818) Active confirmed Problem Family History of Cancer of Colon (Situation) (902350978) Family history of colon cancer (Z80.0) Active confirmed Vital Signs Temperature 98.2 degrees Fahrenheit 04/09/2024 Blood pressure diastolic 00 mm Hg 04/09/2024 Height 62 in 04/09/2024 Blood pressure systolic 000 mm Hg 04/09/2024 Weight 135 lb 2 oz lbs 04/09/2024 BMI 24.71 kg/m2 04/09/2024 Encounters Encounter Location Date Provider Diagnosis [facility] [place] Out[place] [address] [place], [place] [id number] 08/06/2024 Reed Trevino Colon cancer screening Z12.11 ; History of colon polyps Z86.0100 ; Family history of colon cancer Z80.0 ; Colon polyps K63.5 ; Dysphagia R13.10 ; Schatzki's ring K22.2 ; Hiatal hernia K44.9 and Chronic gastritis K29.50 [facility] [address] [place] [address] 04/09/2024 Reed Trevino History of adenomatous polyp of colon Z86.010 ; Dysphagia R13.10 ; Encounter for screening for malignant neoplasm of colon Z12.11 and Family history of colon cancer Z80.0 [facility] [address] [place] [address] 08/07/2024 Reed Trevino Assessments Encounter Date Diagnosis [...] Date MEDICARE OF [place] [address] [place] [address] [id number] KYM CHAMORRO Self - patient is the insured [employer] [address] [place] [address] [id number] KYM CHAMORRO Self - patient is the insured Medical (General) History Medical History History ICD Code Back pain-lower back disc Denies [place],DM,CVA,Lung disease,renal dise ase Depression Negative colonoscopy in 2002 ; 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 Valles Colonoscopy in 04/2013-small tubular constantino noma removed, mild diverticulosis Negative screening colonoscopy in 02/2019 Surgical History Surgery Date(Month/Year) Dr Chen removed an anal condyloma in 2 008 Eyelid surgery
--- OUTSIDE RECORDS SUMMARY | 2025-03-19 19:00 | XMS_ITS | Patient Health Record ---
Author Organization [facility] Address [address] [place] [address] Care Team Providers Care Television Production Technician Name Role Phone Shay Talamantes Primary Care Provider Julianne Brown Unavailable [phone] Conner Pendleton Unavailable [phone] Allergies Allergen (clinical drug ingredient) Drug/Non Drug [...] primary osteoarthritis of the ankle and/or foot (110976331) Primary osteoarthrit is, left ankle and foot (M19.072) Active confirmed Problem Acquired hammer toe of left foot (5805392950568491) Hammer toe of left foot (M20.42) Active confirmed Vital Signs Heart Rate 85 /min 07/17/2024 Blood pressure diastolic 80 mm Hg 08/20/2024 Height 5ft2in in 08/20/2024 Blood pressure systolic 120 mm Hg 08/20/2024 Weight 138 lbs 08/20/2024 BMI 25.24 kg/m2 08/20/2024 Encounters Encounter Location Date Provider Diagnosis [address] [address] 07/17/2024 Conner Pendleton Pain in left foot M79.672 ; Metatarsalgia, left foot M77.42 ; Primary osteoarthritis, left ankle and foot M19.072 and Anterior tibialis tendinitis of left leg M76.[address] [address] 07/22/2024 Julianne Perica Pain in left foot M79.672 ; Metatarsalgia, left foot M77.42 ; Hammer toe of left foot M20.42 ; Flat foot [pes planus] (acquired), right foot M21.41 and Flat foot [pes planus] (acquired), left foot M21.[address] [address] 08/20/2024 Julianne Perica Pain in left foot M79.672 ; Metatarsalgia, left foot M77.42 ; Hammer toe of left foot M20.42 ; Flat foot [pes planus] (acquired), right foot M21.41 and Flat foot [pes planus] (acquired), left foot M21.[address] [address] 07/22/2024 Conner Pendleton [address] [address] 07/22/2024 Julianne Perica Assessments Encounter Date Diagnosis [...] Medicare National [employer] [address] [place] [address] [id number] Kym Amado Self - patient is the insured 3 for [employer] [address] [place] [address] [id number] Blu Amado Spouse - patient is the spouse of the insured 3 Medical (General) History Medical History History ICD Code Anxiety Back pain Broken bones covid-19 Depression Chicken pox Measles Mumps chronic sinusitis Surgical History Surgery Date(Month/Year) eyelid rectal lesion 2006
== END 2025-03-19 15:38 | disposition home or self-care (01) ==
LOC: HO.HMCH 15:06
PROVIDERS: PCP Internal Medicine; Visit Provider Internal Medicine
DX: F33.42 Major depressive disorder, recurrent, in full remission (principal)

== ENCOUNTER → 2025-03-19 15:05 | Outpatient (BNVA) | payer MEDICARE, OTHER, SELFPAY | PROVIDERS: PCP Internal Medicine; Visit Provider Internal Medicine | DX: F33.42 Major depressive disorder, recurrent, in full remission (principal); M81.0 Age-related osteoporosis without current pathological fracture | CPT/HCPCS: 96127; 99212 ==

== ENCOUNTER 2025-04-02 11:30 | Outpatient (REF) | payer MEDICARE, OTHER, SELFPAY ==
--- OUTSIDE RECORDS SUMMARY | 2024-08-05 10:00 | XMS_ITS ---
Author Organization [facility] Address [address] [place] [address] Care Team Providers Care Video Games Mechanic Name Role Phone Shay Talamantes Primary Care Provider Julianne Brown [phone] REASON FOR VISIT OTs not in office Encounters Encounter Location Date Provider Diagnosis [facility] [address] [place] [address] 08/05/2024 Julianne Brown Plan Of Treatment No Information Progress Notes * Kym AMADO MDOB: 8 (65 yo F)Acc No.[id number]:08/05/2024 Progress Note Patient: Kym WINSLOW Provider: Peri Brown DPM :1960 A ge:64 Y S ex:Female Date:08/05/2024 Address:[address] [place], [place] [phone] Pcp:Shay Talamantes Subjective: * Chief Complaints: * [...] 08/05/2024 Generated for Printi ng/Faxing/eTransmitting on: 1 02:27 PM EDT
--- OUTSIDE RECORDS SUMMARY | 2024-08-06 04:30 | XMS_ITS ---
Author Organization [facility] Address [address] [place] [address] Care Team Providers Care Umbrella Tipper Name Role Phone LEVY GOLDSMITH Primary Care Provider Reed Mitchell [phone] REASON FOR VISIT dyshagia, screening, hc polyps,fam hx colon ca Encounters Encounter Location Date Provider Diagnosis [facility] Outpatient [address] [place] [phone] 08/06/2024 Reed Trevino Colon cancer scree carol [...] Notes * MANNIE CHAMORRODOB:1960 (65 yo F)Acc No.[id number]:08/06/2024 EGD and COL/MAC Patient: MANNIE WINSLOW Provider: Iraida Trevino MD :1960 A ge:64 Y S ex:Female Date:08/06/2024 Address:[address] [place], [place] [id number] Pcp:LEVY GOLDSMITH Subjective: * Chief Complaints: * [...] Procedure Codes: 4 5380 COLONOSCOPY AND BIOPSY, 24693 ESOPH ENDOSCOPY, DILATION * * The named appointment provid er may or may not be the originator of this progress note, and it is not deemed complete until electronically signed by the appointment provider. Sign off status: Pending * Provider: Iraida Trevino MD Date: 0 08/06/2024 Generated for Joselo castillo/Kiya/Maribelitting on: 1 02:27 PM EDT
--- NOTE | ~2025-04-02 | MM_ITS ---
EXAMINATION: DXA BONE DENSITY AXIAL HISTORY: M81.0 - Age-related osteoporosis without current pathological fracture TECHNIQUE: [employer] Dual energy absorptiometry (DEXA) of the lumbar spine, total left hip, and femoral neck was performed. COMPARISON: There are no prior studies for comparison. FINDINGS: The bone mineral density of the lumbar spine is 1.118 g/cm2, corresponding to a T-score of -0.5, and a Z-score of 1.3. This is indicative of normal bone mineral density. The bone mineral density of the left total hip is 0.792 g/cm2, corresponding to a T-score of -1.7, and a Z-score of -0.3. This is indicative of osteopenia. The bone mineral density of the left femoral neck is 0.733 g/cm2, corresponding to a T-score of -2.2, and a Z-score of -0.5. This is indicative of osteopenia. FRACTURE RISK: The FRAX index suggests a risk of major osteoporotic fracture of 12.3%, and of hip fracture 2.3%. MM/XR DEXA axial skeleton IMPRESSION: Based on bone mineral density, and according to World Health Organization (WHO) criteria, the diagnosis is consistent with osteopenia. Statistically, 68% of repeat scans fall within 1 SD (+/- 0.010 g/cm2 for AP spine L1-L4) and 1 SD (+/- 0.012 g/cm2 for femur total) FRAX is a trademark of the [employer]'s [place] for Metabolic Bone Disease, a World Health Organization (WHO) Collaborating Center. Electronically signed by: Reed Kingston MD 04/02/2025 11:53 AM EDT
--- OUTSIDE RECORDS SUMMARY | 2025-04-02 14:27 | XMS_ITS | Patient Health Record ---
Author Organization [facility] Address [address] [place] [address] Care Team Providers Care Psychiatrist Name Role Phone LEVY GOLDSMITH Primary Care Provider Rede Mitchell [phone] Allergies Allergen (clinical drug ingredient) Drug/Non Drug Allergy documented on EMR Reaction Allergy Type Onset Date Status Sulfa Unknown Drug Allergy Active Latex Gloves Unknown Drug Allergy Acti ve Results Component Value Reference Range Notes Pathology (Not yet reviewed by provider) Interpretation: Performing Lab:[facility], [address] [place] [phone] Notes/Report: Reason For Referral No Information Medications [...] Problem Screening for malignant neoplasm of colon (327155034) Encounter for screening for malignant neoplasm of colon (Z12.11) Active confirmed Problem History of adenomatous polyp of colon (358573338) History of adenomatous polyp of colon (Z86.010) Active confirmed Problem Dysphagia (17085675) Dysphagia (R13.10) Active confirmed Problem Preprocedural examination (991443196339916) Preprocedural examination (Z01.818) Active confirmed Problem Family History of Cancer of Colon (Situation) (962400646) Family history of colon cancer (Z80.0) Active confirmed Vital Signs Temperature 98.2 degrees Fahrenheit 04/09/2024 Blood pressure diastolic 00 mm Hg 04/09/2024 Height 62 in 04/09/2024 Blood pressure systolic 000 mm Hg 04/09/2024 Weight 135 lb 2 oz lbs 04/09/2024 BMI 24.71 kg/m2 04/09/2024 Encounters Encounter Location Date Provider Diagnosis [facility] [place] Out[place] [address] [place], [place] [phone] 08/06/2024 Reed Trevino Colon cancer screening Z12.11 ; History of colon polyps Z86.0100 ; Family history of colon cancer Z80.0 ; Colon polyps K63.5 ; Dysphagia R13.10 ; Schatzki's ring K22.2 ; Hiatal hernia K44.9 and Chronic gastritis K29.50 [facility] [address] [place] [address] 04/09/2024 Reed Trevino History of adenomatous polyp of colon Z86.010 ; Dysphagia R13.10 ; Encounter for screening for malignant neoplasm of colon Z12.11 and Family history of colon cancer Z80.0 [facility] [address] [place] [address] 08/07/2024 Reed Trevino Assessments Encounter Date Diagnosis [...] Date MEDICARE OF [place] [address] [place] [address] [id number] KYM CHAMORRO Self - patient is the insured [employer] [address] [place] [address] [id number] KYM CHAMORRO Self - patient is the insured Medical (General) History Medical History History ICD Code Back pain-lower back disc Denies [place],DM,CVA,Lung disease,renal dise ase Depression Negative colonoscopy in 2002 ; 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 Valles Colonoscopy in 04/2013-small tubular constantino noma removed, mild diverticulosis Negative screening colonoscopy in 02/2019 Surgical History Surgery Date(Month/Year) Dr Chen removed an anal condyloma in 2 008 Eyelid surgery
--- OUTSIDE RECORDS SUMMARY | 2025-04-02 14:27 | XMS_ITS | Patient Health Record ---
Author Organization [facility] Address [address] [place] [address] Care Team Providers Care Change Over Name Role Phone Shay Talamantes Primary Care Provider Julianne Brown Unavailable [phone] Conner Pendleton Unavailable [phone] Allergies Allergen (clinical drug ingredient) Drug/Non Drug [...] primary osteoarthritis of the ankle and/or foot (586969573) Primary osteoarthrit is, left ankle and foot (M19.072) Active confirmed Problem Acquired hammer toe of left foot (9970239815721001) Hammer toe of left foot (M20.42) Active confirmed Vital Signs Heart Rate 85 /min 07/17/2024 Blood pressure diastolic 80 mm Hg 08/20/2024 Height 5ft2in in 08/20/2024 Blood pressure systolic 120 mm Hg 08/20/2024 Weight 138 lbs 08/20/2024 BMI 25.24 kg/m2 08/20/2024 Encounters Encounter Location Date Provider Diagnosis [address] [address] 07/17/2024 Conner Pendleton Pain in left foot M79.672 ; Metatarsalgia, left foot M77.42 ; Primary osteoarthritis, left ankle and foot M19.072 and Anterior tibialis tendinitis of left leg M76.[address] [address] 07/22/2024 Julianne Perica Pain in left foot M79.672 ; Metatarsalgia, left foot M77.42 ; Hammer toe of left foot M20.42 ; Flat foot [pes planus] (acquired), right foot M21.41 and Flat foot [pes planus] (acquired), left foot M21.[address] [address] 08/20/2024 Julianne Perica Pain in left foot M79.672 ; Metatarsalgia, left foot M77.42 ; Hammer toe of left foot M20.42 ; Flat foot [pes planus] (acquired), right foot M21.41 and Flat foot [pes planus] (acquired), left foot M21.[address] [address] 07/22/2024 Conner Pendleton [address] [address] 07/22/2024 Julianne Perica Assessments Encounter Date Diagnosis [...] Medicare National [employer]t [employer] [address] [place] [address] [id number] Kym Amado Self - patient is the insured [employer] [address] [place] [address] [id number] Blu Amado Spouse - patient is the spouse of the insured 3 Medical (General) History Medical History History ICD Code Anxiety Back pain Broken bones covid-19 Depression Chicken pox Measles Mumps chronic sinusitis Surgical History Surgery Date(Month/Year) eyelid rectal lesion 2006
== END 2025-04-02 11:31 | disposition home or self-care (01) ==
LOC: HO.MAMMO 11:30
PROVIDERS: PCP Internal Medicine; Visit Provider Internal Medicine
DX: M81.0 Age-related osteoporosis without current pathological fracture (principal)
CPT/HCPCS: 77080

== ENCOUNTER → 2025-04-02 11:30 | Outpatient (BNV) | payer MEDICARE, OTHER, SELFPAY | PROVIDERS: PCP Internal Medicine; Visit Provider Radiology Diagnostic Radiology | DX: E28.39 Other primary ovarian failure (principal) | CPT/HCPCS: 77080 ==

== ENCOUNTER 2025-04-09 08:41 | Outpatient (AMB) | payer MEDICARE, OTHER, SELFPAY ==
--- OUTSIDE RECORDS SUMMARY | 2024-08-05 09:00 | XMS_ITS ---
[facility] Organization [facility] Address [address] [place] [address] Care Team Providers Care Semaphore Operator Name Role Phone Shay Talamantes Primary Care Provider Julianne Brown [phone] REASON FOR VISIT OTs not in office Encounters Encounter Location Date Provider Diagnosis [facility] [address] [place] [address] 08/05/2024 Julianne Brown Plan Of Treatment No Information Progress Notes * Kym AMADO MDOB: 8 (65 yo F)Acc No.[id number]:08/05/2024 Progress Note Patient: Kym WINSLOW Provider: Peri Brown DPM :1960 A ge:64 Y S ex:Female Date:08/05/2024 Address:[address] [place], [place] [id number] Pcp:Shay Talamantes Subjective: * Chief Complaints: * 1 . OTs not in office. * Medical History: Objective: * Vitals: Assessment: Plan: * Treatment: * Images: * The named appointment provid er may or may not be the originator of this progress note, and it is not deemed complete until electronically signed by the appointment provider. Sign off status: Pending * Provider: Peri Brown DPM Date: 0 08/05/2024 Generated for Parisi jonathan/Kiya/eTransmitting on: 1 06/09/2024 09:08 AM EST
--- OUTSIDE RECORDS SUMMARY | 2024-08-06 03:30 | XMS_ITS ---
Author Organization [facility] Address [address] [place] [address] Care Team Providers Care Web Applications Architect Name Role Phone LEVY GOLDSMITH Primary Care Provider Reed Mitchell [phone] REASON FOR VISIT dyshagia, screening, hc polyps,fam hx colon ca Encounters Encounter Location Date Provider Diagnosis [facility] Outpatient [address] [place] [phone] 08/06/2024 Reed Trevino Colon cancer scree carol Z12.11 ; History of colon polyps Z86.0100 ; Family history of colon cancer Z80.0 ; Colon polyps K63.5 ; Dysphagia R13.10 ; Schatzki's ring K22.2 ; Hiatal hernia K44.9 and Chronic gastritis K29.50 Assessments Encounter Date Diagnosis (ICD Code) Assessment Notes Treatment Notes Treatment Clinical Notes Section Notes 08/06/2024 Colon cancer screening (ICD-10 - Z12.11) 08/06/2024 History of colon polyps (ICD-10 - Z86.0100) 08/06/2024 Family history of colon cancer (ICD-10 - Z80.0) 08/06/2024 Colon polyps (ICD-10 - K63.5) 08/06/2024 Dysphagia (ICD-10 - R13.10) 08/06/2024 Schatzki's ring (ICD-10 - K22.2) 08/06/2024 Hiatal hernia (ICD-10 - K44.9) 08/06/2024 Chronic gastritis (ICD-10 - K29.50) Plan Of Treatment No Information Progress Notes * MANNIE CHAMORRODOB:1960 (65 yo F)Acc No.[id number]:08/06/2024 EGD and COL/MAC Patient: MANNIE WINSLOW Provider: Iraida Trevino MD :1960 A ge:64 Y S ex:Female Date:08/06/2024 Address:[address] [place], [place] [phone] Pcp:LEVY GOLDSMITH Subjective: * Chief Complaints: * 1 . Dyshagia, screening, hc polyps,fam hx colon ca. * Medical History: Objective: * Vitals: Assessment: * Assessment: 1. C olon cancer screening - Z12.11 (Primary) 2 . H istory of colon polyps - Z86.0100 3 . F amily history of colon cancer - Z80.0 4 . C olon polyps - K63.5 5 . D ysphagia - R13.10 6 . S chatzki's ring - K22.2 7 . H iatal hernia - K44.9 8 . C hronic gastritis - K29.50 Plan: * Treatment: * Procedure Codes: 4 5380 COLONOSCOPY AND BIOPSY, 20546 ESOPH ENDOSCOPY, DILATION * * The named appointment provid er may or may not be the originator of this progress note, and it is not deemed complete until electronically signed by the appointment provider. Sign off status: Pending * Provider: Iraida Trevino MD Date: 0 08/06/2024 Generated for Joselo castillo/Kiya/Maribelitting on: 1 06/09/2024 09:08 AM EST
[2025-04-09 08:45] VITALS: BP 122/70; PULSE 68; TEMP 36.9; O2SAT 98; BMI 24.6
--- NOTE | 2025-04-09 08:45 | AM.OFFWIN_ITS ---
Intake Vital Signs 04/09/25 08:45 Height 5 ft 1 in Weight 130 lb BMI 24.6 BP 122/70 Blood Pressure Location Lt brachial Position Sitting Pulse 68 Pulse Source Pulse Oximeter Temp 98.4 F Temp Source Oral Pulse Oximetry (%) 98 Intake Visit Reasons: ep tick bite Patient Tobacco Use Status: Never used Tobacco Allergies latex Allergy (Verified 04/09/25 08:49) Unknown sulfa Allergy (Unknown, Uncoded 03/19/25 15:12) unknown Do you need a note to return to daycare/school/sports/work: No HPI HPI Comments History of Present Illness Details History - The patient is a 65-year-old female pr esenting with a tick bite. - The patient noticed a tick attached to her skin, which was removed by her this morning. - The tick was deeply embedded and cause d pain upon removal. - The area was red prior to removal, goldman sing concerns about infection. - The patient has a history of exposure to ticks due to outdoor activities and pet ownership. Review of Systems - Integumentary: Reports redness and sahil n at the site of the tick bite. - Musculoskeletal: Denies joint pain. - General: Denies fever. All systems reviewed and are unremarkable except as noted in HPI Physical Exam Physical Exam General: Cooperative, healthy appearing, comfortable, no acute distress and well developed Orientation: Patient oriented x3 Limitations: No limitations Head: Normal to inspection Ears: Hearing grossly normal bilaterally Face and sinus: Normal facial exam Eyes: Appearance normal, both eyes and all related structures Neck: Normal visual inspection and Yes full ROM Respiratory: Normal respiratory effort and able to speak in complete sentences. Skin: right side upper neck pinpoint dark red area with circular 0.5cm area of erythema, no drainage, no fluctuance, no warmth, no erythema migrans. Neuro: Patient oriented x3 [facility] Medical History Anal condyloma Depression Back pain Synovial cyst of popliteal space [Pickett], right knee Osteoarthritis of spine Major depression, recurrent Hypercholesterolemia Depression Arthritis, lumbar spine Surgical History History of endoscopy History of eyelid surgery History of colonoscopy (~02/24/19) Family History Father No problems noted. Mother No problems noted. Social History Housing: House Are you a primary home care nurse to a significant other at home: No Do you presently have visiting nurse or other home services: No Alcohol intake: current Alcohol intake frequency: holidays/special occasions only Patient Tobacco Use Status: Never used Tobacco Tobacco use type: Cigarette e-Cigarette/Vaping Use: Never Used Second Hand Smoke Exposure: Yes service: No Current occupational status: employed Current occupational exposures/hazards: No Cognitive needs: No Hearing needs: No Vision needs: Yes (Contacts) Physical Exam Vital Signs: Last Vital Signs Temp 98.4 F 04/09/25 08:45 Pulse 68 04/09/25 08:45 BP 122/70 04/09/25 08:45 Pulse Ox 98 04/09/25 08:45 BMI result Body Mass Index 24.6 Assessment & Plan Assessment & Plan (1) Tick bite: Code(s): W57.XXXA - Bitten or stung by nonvenomous insect and other nonvenomous arthropods, initial encounter Qualifiers: Encounter type: initial encounter Site of tick bite: other part of neck Qualified Code(s): S10.86XA - Insect bite of other specified part of neck, initial encounter; W57.XXXA - Bitten or stung by nonvenomous insect and other nonvenomous arthropods, initial encounter Plan: Plan - Prescribed a prophylactic dose of doxycycline to prevent Lyme disease. - Advised the patient to apply topical antibiotics to the bite site and monitor for signs of infection. - Instructed the patient to return if symptoms of erythema migrans or other Lyme disease symptoms develop such as fever or rash. Patient was informed and verbally consented to the use of an ambient scribe for clinic note documentation during this visit. Medications: New doxycycline hyclate 200 mg (2 x 100 mg) PO once 2 tabs 0RF tick bite ppx Coding Level of Care Code Est Pt Level 3 (93731) Diagnoses Tick bite of other part of neck, initial encounter S10.86XA; W57.XXXA Encounter type: initial encounter Site of tick bite: other part of neck
--- OUTSIDE RECORDS SUMMARY | 2025-04-09 09:08 | XMS_ITS | Patient Health Record ---
Author Organization [facility] Address [address] [place] [address] Care Team Providers Care Hobber Name Role Phone Shay Talamantes Primary Care Provider Julianne Brown Unavailable [phone] Conner Pendleton Unavailable [phone] Allergies Allergen (clinical drug ingredient) Drug/Non Drug [...] primary osteoarthritis of the ankle and/or foot (915189438) Primary osteoarthrit is, left ankle and foot (M19.072) Active confirmed Problem Acquired hammer toe of left foot (6975283961942997) Hammer toe of left foot (M20.42) Active confirmed Vital Signs Heart Rate 85 /min 07/17/2024 Blood pressure diastolic 80 mm Hg 08/20/2024 Height 5ft2in in 08/20/2024 Blood pressure systolic 120 mm Hg 08/20/2024 Weight 138 lbs 08/20/2024 BMI 25.24 kg/m2 08/20/2024 Encounters Encounter Location Date Provider Diagnosis [address] [address] 07/17/2024 Conner Pendleton Pain in left foot M79.672 ; Metatarsalgia, left foot M77.42 ; Primary osteoarthritis, left ankle and foot M19.072 and Anterior tibialis tendinitis of left leg M76.[address] [address] 07/22/2024 Julianne Perica Pain in left foot M79.672 ; Metatarsalgia, left foot M77.42 ; Hammer toe of left foot M20.42 ; Flat foot [pes planus] (acquired), right foot M21.41 and Flat foot [pes planus] (acquired), left foot M21.[address] [address] 08/20/2024 Julianne Perica Pain in left foot M79.672 ; Metatarsalgia, left foot M77.42 ; Hammer toe of left foot M20.42 ; Flat foot [pes planus] (acquired), right foot M21.41 and Flat foot [pes planus] (acquired), left foot M21.[address] [address] 07/22/2024 Conner Pendleton [address] [address] 07/22/2024 Julianne Perica Assessments Encounter Date Diagnosis [...] Medicare National [employer]t [employer] [address] [place] [address] [id number] Kym Amado Self - patient is the insured 3 for Life [address] [place] [address] [id number] Blu Amado Spouse - patient is the spouse of the insured 3 Medical (General) History Medical History History ICD Code Anxiety Back pain Broken bones covid-19 Depression Chicken pox Measles Mumps chronic sinusitis Surgical History Surgery Date(Month/Year) eyelid rectal lesion 2006
--- OUTSIDE RECORDS SUMMARY | 2025-04-09 09:08 | XMS_ITS | Patient Health Record ---
Author Organization [facility] Address [address] [place] [address] Care Team Providers Care Play Reader Name Role Phone LEVY GOLDSMITH Primary Care Provider Reed Mitchell [phone] Allergies Allergen (clinical drug ingredient) Drug/Non Drug Allergy documented on EMR Reaction Allergy Type Onset Date Status Sulfa Unknown Drug Allergy Active Latex Gloves Unknown Drug Allergy Acti ve Results Component Value Reference Range Notes Pathology (Not yet reviewed by provider) Interpretation: Performing Lab:[facility], [address] [place] [phone] Notes/Report: Reason For Referral No Information Medications [...] Problem Screening for malignant neoplasm of colon (995986535) Encounter for screening for malignant neoplasm of colon (Z12.11) Active confirmed Problem History of adenomatous polyp of colon (850622531) History of adenomatous polyp of colon (Z86.010) Active confirmed Problem Dysphagia (02369532) Dysphagia (R13.10) Active confirmed Problem Preprocedural examination (794889068529375) Preprocedural examination (Z01.818) Active confirmed Problem Family History of Cancer of Colon (Situation) (772916634) Family history of colon cancer (Z80.0) Active confirmed Vital Signs Temperature 98.2 degrees Fahrenheit 04/09/2024 Blood pressure diastolic 00 mm Hg 04/09/2024 Height 62 in 04/09/2024 Blood pressure systolic 000 mm Hg 04/09/2024 Weight 135 lb 2 oz lbs 04/09/2024 BMI 24.71 kg/m2 04/09/2024 Encounters Encounter Location Date Provider Diagnosis [facility] [place] [address] [place], [place] [phone] 08/06/2024 Reed Trevino Colon cancer screening Z12.11 ; History of colon polyps Z86.0100 ; Family history of colon cancer Z80.0 ; Colon polyps K63.5 ; Dysphagia R13.10 ; Schatzki's ring K22.2 ; Hiatal hernia K44.9 and Chronic gastritis K29.50 [facility] [address] [place] [address] 04/09/2024 Reed Trevino History of adenomatous polyp of colon Z86.010 ; Dysphagia R13.10 ; Encounter for screening for malignant neoplasm of colon Z12.11 and Family history of colon cancer Z80.0 [facility] [address] [place] [address] 08/07/2024 Reed Trevino Assessments Encounter Date Diagnosis [...] Date MEDICARE OF [place] [address] [place] [address] [id number] KYM CHAMORRO Self - patient is the insured [employer] [address] [place] [address] [id number] KYM CHAMORRO Self - patient is the insured Medical (General) History Medical History History ICD Code Back pain-lower back disc Denies [place],DM,CVA,Lung disease,renal dise ase Depression Negative colonoscopy in 2002 ; 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 Valles Colonoscopy in 04/2013-small tubular constantino noma removed, mild diverticulosis Negative screening colonoscopy in 02/2019 Surgical History Surgery Date(Month/Year) Dr Chen removed an anal condyloma in 2 008 Eyelid surgery
== END 2025-04-09 09:23 | disposition home or self-care (01) ==
PROVIDERS: PCP Internal Medicine; Visit Provider Physician Assistant
DX: S10.86XA Insect bite of other specified part of neck, initial encounter (principal); W57.XXXA Bitten or stung by nonvenomous insect and other nonvenomous arthropods, initial encounter

== ENCOUNTER → 2025-04-09 08:41 | Outpatient (BNVA) | payer MEDICARE, OTHER, SELFPAY | PROVIDERS: PCP Internal Medicine; Visit Provider Physician Assistant | DX: S10.86XA Insect bite of other specified part of neck, initial encounter (principal); W57.XXXA Bitten or stung by nonvenomous insect and other nonvenomous arthropods, initial encounter | CPT/HCPCS: 99212 ==